=== PATIENT | male | born 1950 | race Caucasian/White ===

== ENCOUNTER → 2016-12-04 | Day surgery (SDC) | payer OTHER ==
[~2016-12-04] VITALS: Ht 182.9 cm; Wt 77.1 kg
[~2016-12-04] MED LIST: ACETAMINOPHEN 325 MG TAB PO PRN; ASPI1TAB PO; AcetaZOLAMIDE 500 MG ER CAP PO ONE; BIMA01SOL OS; BSS with VANC/TOB/EPI for EYE CASES IR ONE; COSO1SOL3 OS; CYCLOPENTOLATE 2% OPHTH SOLN 2ML BTL OD ONE; HEALON DUET (HEALON 10MG/ML 0.55ML & HEALON ENDOCOAT 30MG/ML 0.85ML) As Ordered ONE; LIDOCAINE 1% SDV 5 ML VIAL As Ordered ONE; LIDOCAINE 4% INJ 5 ML AMP OU ONE; LR 1,000 ML IV SCH; MIDAZOLAM INJ 2 MG/2 ML VIAL (J2250) As Ordered ONE; MOXIFLOXACIN IN BSS 0.25MG/0.25ML INTRACAMERAL INJ (OR EYE ONLY)(J2280) As Ordered ONE; MULT1TAB10 PO; OFLOXACIN 0.3 % (OCUFLOX) OPTH SOL 5ML OD ONE; OMEG100011 PO; PHENYLEPHRINE 2.5% OPHTH SOL 2ML OD ONE; PILO1OPD OS; POVIDONE-IODINE 5% OPHTH PREP SOL 30ML As Ordered ONE; SIMV10TA2 PO; SYSTSOL14 OU; TRIAMCINOLONE PRES FR 40 MG/ML 1ML(TRIESENCE)(OR EYE ONLY)(J3300 PER 1MG) As Ordered ONE; TRIMETHOBENZAMIDE 300 MG CAP PO PRN; TROPICAMIDE 1% OPHTH SOLN 2ML OD ONE; VITA100067 PO; fentaNYL 100 MCG/2 ML INJECTION (J3010) As Ordered ONE
[2016-12-04 12:00] VITALS: BP 120/70
== END | disposition home or self-care (01) ==
LOC: M SDC 09:23
PROVIDERS: ATTEND Ophthalmology
DX: H26.9 Unspecified cataract (principal); E78.00 Pure hypercholesterolemia, unspecified; I05.9 Rheumatic mitral valve disease, unspecified; H40.9 Unspecified glaucoma; Z88.8 Allergy status to other drugs, medicaments and biological substances; Z79.899 Other long term (current) drug therapy; Z79.82 Long term (current) use of aspirin; Z87.891 Personal history of nicotine dependence
CPT/HCPCS: 66984; J2250; J2280; J3010; J3300

== ENCOUNTER → 2016-12-25 | Day surgery (SDC) | payer OTHER ==
[~2016-12-25] VITALS: Ht 182.9 cm; Wt 77.1 kg
[~2016-12-25] MED LIST changes: -ACETAMINOPHEN 325 MG TAB PO PRN; -AcetaZOLAMIDE 500 MG ER CAP PO ONE; +CEFUROXIME 1MG/0.1ML INTRACAMERAL INJ As Ordered ONE; -CYCLOPENTOLATE 2% OPHTH SOLN 2ML BTL OD ONE; +CYCLOPENTOLATE 2% OPHTH SOLN 2ML BTL OS ONE; +LIDOCAINE 1% SDV 5 ML VIAL SQ ONE; -LR 1,000 ML IV SCH; +LR 500 ML IV ONE; -OFLOXACIN 0.3 % (OCUFLOX) OPTH SOL 5ML OD ONE; +OFLOXACIN 0.3 % (OCUFLOX) OPTH SOL 5ML OS ONE; -PHENYLEPHRINE 2.5% OPHTH SOL 2ML OD ONE; +PHENYLEPHRINE 2.5% OPHTH SOL 2ML OS ONE; +TOBRADEX OPHTH OINT 3.5 GM As Ordered ONE; -TRIMETHOBENZAMIDE 300 MG CAP PO PRN; -TROPICAMIDE 1% OPHTH SOLN 2ML OD ONE; +TROPICAMIDE 1% OPHTH SOLN 2ML OS ONE; -fentaNYL 100 MCG/2 ML INJECTION (J3010) As Ordered ONE; +mitoMYcin 0.2 MG/VIAL KIT FOR OPHTHALMIC USE (J7315 PER 0.2MG) As Ordered ONE
[2016-12-25 14:55] VITALS: BP 143/83
--- NOTE | 2016-12-28 14:12 | RO ---
DATE OF PROCEDURE: 12/25/2016 PREPROCEDURE DIAGNOSES: Cataract left eye, glaucoma left eye, myosis left eye. POSTPROCEDURE DIAGNOSES: Cataract left eye, glaucoma left eye, myosis left eye. PROCEDURE: Phacoemulsification with intraocular lens implantation of PCB00 power 18.0 Diopter, placement of the Malyugin ring 7 mm and division of the 25 Ahmed valve left eye. SURGEON: Carlota Roche MD. BAND SAW OPERATOR: None. ANESTHESIA: COMPLICATIONS: None. DESCRIPTION OF PROCEDURE: The patient was brought to the operating room and laid in supine position. The left eye was prepped and draped in a sterile fashion for opthalmic surgery and a lid speculum was placed. A sideport incision was made and EndoCoat was injected into the anterior chamber. Temporal clear corneal incision was then made with a 2.5 mm keratome followed by capsulorrhexis and hydrodissection. Phacoemulsification was done in divide and conquer method followed by aspiration of the cortical material. Intraocular lens was then placed under Healon in the capsular bag. Excess viscoelastic was then aspirated. A 27 gauge cannula was used through an inferior paracentesis to probe the Ahmed valve and flush it and was noted to be working okay. However, some scarring of the Ahmed valve was extensive. #10-0 Nylon suture was then placed to close the temporal clear corneal incision and cefuroxime was injected intracamerally 1 mg. Attention was then divided toward revision of the Ahmed valve. Subconjunctival injection of 2% lidocaine with 1:100,000 epinephrine was given superiorly around subconjunctival space around the Ahmed valve. Conjunctival peritomy was done superiorly and supratemporally above the Ahmed valve. Extensive adhesions were noted which were lysed. Following which Mitomycin 0.4 diluted to 0.3 mg was then placed on the scleral bed and around the Ahmed valve for about 2 minutes followed by copious irrigation with balanced salt solution. With gentle massage on the eye, it was noted that the Ahmed valve was working well. Conjunctiva was closed using #0 Vicryl sutures. Ciprodex ointment was applied. Eye was patched. Lid speculum was removed prior to that and patient returned to the recovery room in stable condition.
== END | disposition home or self-care (01) ==
LOC: M SDC 11:20
PROVIDERS: ATTEND Ophthalmology
DX: H25.9 Unspecified age-related cataract (principal); H40.10X2 Unspecified open-angle glaucoma, moderate stage; H57.03 Miosis; E78.00 Pure hypercholesterolemia, unspecified; I34.8 Other nonrheumatic mitral valve disorders; Z79.82 Long term (current) use of aspirin; Z79.899 Other long term (current) drug therapy
CPT/HCPCS: 66183; 66982; C1783; J2250; J2280; J7315

== ENCOUNTER → 2017-07-29 | Outpatient (CLI) | payer OTHER | LOC: M CLY 15:45 | DX: R05 Cough (principal) | CPT/HCPCS: 71046 ==

== ENCOUNTER 2019-05-12 17:41 | Inpatient (IN) | payer MEDICARE, OTHER ==
[~2019-05-12] VITALS: Ht 182.9 cm; Wt 78.6 kg
[~2019-05-12 17:41] MED LIST changes: -ASPI1TAB PO; +ASPI81TA26 PO; -BSS with VANC/TOB/EPI for EYE CASES IR ONE; -CEFUROXIME 1MG/0.1ML INTRACAMERAL INJ As Ordered ONE; -CYCLOPENTOLATE 2% OPHTH SOLN 2ML BTL OS ONE; -HEALON DUET (HEALON 10MG/ML 0.55ML & HEALON ENDOCOAT 30MG/ML 0.85ML) As Ordered ONE; -LIDOCAINE 1% SDV 5 ML VIAL As Ordered ONE; -LIDOCAINE 1% SDV 5 ML VIAL SQ ONE; -LIDOCAINE 4% INJ 5 ML AMP OU ONE; -LR 500 ML IV ONE; -MIDAZOLAM INJ 2 MG/2 ML VIAL (J2250) As Ordered ONE; -MOXIFLOXACIN IN BSS 0.25MG/0.25ML INTRACAMERAL INJ (OR EYE ONLY)(J2280) As Ordered ONE; -OFLOXACIN 0.3 % (OCUFLOX) OPTH SOL 5ML OS ONE; -PHENYLEPHRINE 2.5% OPHTH SOL 2ML OS ONE; -POVIDONE-IODINE 5% OPHTH PREP SOL 30ML As Ordered ONE; -SIMV10TA2 PO; +SIMV10TA21 PO; -TOBRADEX OPHTH OINT 3.5 GM As Ordered ONE; -TRIAMCINOLONE PRES FR 40 MG/ML 1ML(TRIESENCE)(OR EYE ONLY)(J3300 PER 1MG) As Ordered ONE; -TROPICAMIDE 1% OPHTH SOLN 2ML OS ONE; -mitoMYcin 0.2 MG/VIAL KIT FOR OPHTHALMIC USE (J7315 PER 0.2MG) As Ordered ONE
[2019-05-12] MEDS ORDERED: BRIM1OPD OS (17:50)
[2019-05-12] MEDS ORDERED: ADVI100T PO (17:51)
[2019-05-12] MEDS ORDERED: OXYC1TAB23 PO (17:51)
[2019-05-12] MEDS ORDERED: ONDANSETRON 4MG/2ML VIAL (J2405) IV ONE (18:30)
[2019-05-12] MEDS ORDERED: SYST1SOL4 OU (18:47)
[2019-05-12] MEDS ORDERED: KRIL1CAP6 PO (18:47)
[2019-05-12] MEDS ORDERED: IBUP200T45 PO (18:47)
[2019-05-12] MEDS ORDERED: LIDO1PAD TOP (18:47)
[2019-05-12] MEDS ORDERED: SIMV20TA22 PO (18:47)
[2019-05-12] MEDS: MORPHINE 4 MG/ML 1ML VIAL/SYRINGE (J2270) IV PRN ×2 (18:59→19:37)
[2019-05-12 19:00] LABS: BASO % 0.3 % (0.0-1.0); EOS # 0.3 10^3/uL (0.0-0.5); EOS % 2.1 % (0.0-3.0); HEMATOCRIT 45.6 % (42.0-52.0); HEMOGLOBIN 15.1 g/dl (13.5-17.5); LYMPH # 1.8 10^3/uL (1.5-5.0); LYMPH % 15.1 % (24.0-44.0); MEAN CORPUSCULAR HEMOGLOBIN 31.6 pg (27.0-33.0); MEAN CORPUSCULAR HGB CONC 33.1 g/dl (32.0-36.5); MEAN CORPUSCULAR VOLUME 95.4 fl (80.0-96.0); MONO # 1.1 10^3/uL (0.0-0.8); MONO % 9.2 % (0.0-5.0); NEUTROPHILS # 8.8 10^3/uL (1.5-8.5); NEUTROPHILS % 72.8 % (36.0-66.0); PLATELET COUNT, AUTOMATED 245 10^3/uL (150-450); RED BLOOD COUNT 4.78 10^6/uL (4.30-6.10); WHITE BLOOD COUNT 12.1 10^3/uL (4.0-10.0)
--- NOTE | 2019-05-12 19:09 | REPVR ---
PROCEDURE INFORMATION: Exam: CT Chest Without Contrast Exam date and time: 05/12/2019 6:25 PM Age: 69 years old Clinical history: Injury or trauma; Fall; Initial encounter; Blunt trauma (contusions or hematomas); Additional info: Fell/rib FX TECHNIQUE: Imaging protocol: Computed tomography of the chest without contrast. 3D rendering: MIP reconstructed images were created and reviewed. Radiation optimization: All CT scans at this facility use at least one of these dose optimization techniques: automated exposure control; mA and/or kV adjustment per patient size (includes targeted exams where dose is matched to clinical indication); or iterative reconstruction. COMPARISON: CR CHEST 2 VIEW 07/29/2017 4:00 PM FINDINGS: Lungs: Dependent atelectasis bilaterally. Dependent consolidation in the right lower lung is likely a combination of atelectasis and underlying pulmonary contusion. Pleural space: Small right hemopneumothorax. Heart: Aortic annular and coronary artery calcifications are present. Multichamber cardiac enlargement, predominantly the left atrium and ventricle. Aorta: Mild aortic and branch vessel atherosclerosis. Lymph nodes: Unremarkable. No enlarged lymph nodes. Spleen: Multiple splenic parenchymal calcifications, likely from old granulomatous disease. Bones/joints: Right extrapleural hematoma adjacent to the rib fractures. Multiple acute fractures. Right posterior fourth rib fracture. Segmental right fifth, sixth, seventh, eighth, ninth, 10th, 11th rib fractures. Right posterior 12th rib fracture. Right T9 transverse process fracture. Soft tissues: Unremarkable. IMPRESSION: 1. Small right hemopneumothorax. Dependent consolidation in the right lower lung is likely a combination of atelectasis and underlying pulmonary contusion. 2. Multiple fractures, including right segmental rib 5th through 11th fractures which predisposes to flail chest physiology. 3. Multichamber predominantly left heart enlargement. Electronically signed by: Marshall Ryder On 05/12/2019 19:08:45 PM
[2019-05-12 19:13] LABS: INR 1.06; PROTHROMBIN TIME 13.5 SECONDS (11.8-14.0)
[2019-05-12 19:26] LABS: ALBUMIN 3.7 GM/DL (3.2-5.2); ALT/SGPT 23 U/L (12-78); BILIRUBIN,TOTAL 0.9 MG/DL (0.2-1.0); BLOOD UREA NITROGEN 16 MG/DL (7-18); CALCIUM LEVEL 9.5 MG/DL (8.8-10.2); CARBON DIOXIDE LEVEL 26 MEQ/L (21-32); CHLORIDE LEVEL 104 MEQ/L (98-107); CREATININE FOR GFR 1.24 MG/DL (0.70-1.30); GLOMERULAR FILTRATION RATE > 60.0 (>49); GLUCOSE, FASTING 111 MG/DL (70-100); POTASSIUM SERUM 4.3 MEQ/L (3.5-5.1); SODIUM LEVEL 137 MEQ/L (136-145); TOTAL PROTEIN 6.9 GM/DL (6.4-8.2)
[2019-05-12] MEDS ORDERED: ACETAMINOPHEN TAB 650MG DOSE (2X325MG) PO PRN (20:00)
[2019-05-12] MEDS ORDERED: traMADol ER 100MG TABLET (ULTRAM ER) PO SCH (21:00)
[2019-05-12] MEDS ORDERED: PERCOCET 5MG/325MG TAB PO PRN (21:30)
[2019-05-12] MEDS ORDERED: diphenhydrAMINE 25 MG CAP PO PRN (21:30)
--- NOTE | 2019-05-12 22:05 | HPEPDOC ---
[facility] Medical History & Physical Date of Admission May 12, 2019 Date of Service: May 12, 2019 Primary Care Physician: Thom Pacheco MD Attending Physician: ALLISON LO MD History and Physical TIME OF SERVICE: 9:10 PM CHIEF COMPLAINT: back pain HISTORY OF PRESENT ILLNESS: This is a 69-year-old male who slipped and fell on the ice onto his back earlier on today. As a result of the fall. He developed, 7 out of 10 in severity, right sided back pain. He denies hitting his head or any other part of his body. He denied having any chest pain, shortness of breath, or leg swelling prior to the incident. REVIEW OF SYSTEMS: 12 point review of systems negative except as listed in HPI PAST MEDICAL/ SURGICAL HISTORY: Mitral valve prolapse Dyslipidemia Glaucoma. Status post cataract surgery. Status post hernia repair SOCIAL HISTORY: He quit smoking FAMILY HISTORY: The patient denied knowledge of any medical problems in his family ALLERGIES: Please see below. HOME MEDICATIONS: Please see below. PHYSICAL EXAMINATION: VITAL SIGNS: Please see below. GENERAL APPEARANCE: Well-nourished, well-developed, appears to be in pain HEENT: Normocephalic, atraumatic. Mucous membranes moist and pink. Nasal cannula is in place CARDIOVASCULAR:. Regular rate and rhythm. No murmurs, rubs or gallops LUNGS: Clear to auscultation bilaterally on room air ABDOMEN: Bowel sounds are hypoactive. Abdomen is soft and nontender on palpation MUSCULOSKELETAL:. Range of motion is intact in all 4 extremities is no lower extremity edema INTEGUMENT: He does not appear jaundiced or pale NEUROLOGICAL:. Cranial nerves II-12 are grossly intact. Speech is not dysarthric PSYCHIATRIC: Alert and oriented to person, place and time, able to understand and follow commands LABORATORY DATA: See below. IMAGING: CT of the chest " IMPRESSION: 1. Small right hemopneumothorax. Dependent consolidation in the right lower lung is likely a combination of atelectasis and underlying pulmonary contusion. 2. Multiple fractures, including right segmental rib 5th through 11th fractures which predisposes to flail chest physiology. 3. Multichamber predominantly left heart enlargement. " ASSESSMENT: Mr. Madrigal is a 69-year-old with a past medical history of dyslipidemia and mitral valve prolapse will be admitted from management of pain related to multiple rib fractures pulmonary contusion and small right-sided hemo-pneumothorax. PLAN: 1. Right-sided 5th- 11th rib fractures secondary to mechanical fall Plan: Admit to medical floor/pain control with Percocet and ibuprofen/incentive spirometer 2. Right-sided hemo-pneumothorax His hemoglobin is within normal limits Plan: O2 via nasal cannula,/follow up chest x-ray in the morning/ if he deteriorates, the daytime team may consider CT surgery consult / hold aspirin and ibuprofen 3. Leukocytosis Likely reactive secondary to fall. Plan: Monitor vitals, follow-up CBC in the morning 4. Hyperglycemia. Plan: Follow up A1c 5. Dyslipidemia Plan: Continue home meds 6 . Glaucoma Plan: Continue home meds DVT prophylaxis with SCDs Disposition likely home after more than 2 midnights stay Vital Signs Vital Signs Date Time Temp Pulse Resp B/P (MAP) Pulse Ox O2 Delivery O2 Flow Rate FiO2 05/12/19 20:45 75 18 141/84 (103) 94 Nasal Cannula 1.0 05/12/19 17:44 97.4 Laboratory Data Labs 24H Laboratory Tests 2 05/12/19 18:53: Immature Granulocyte % (Auto) 0.5, Neutrophils (%) (Auto) 72.8H, Lymphocytes (%) (Auto) 15.1L, Monocytes (%) (Auto) 9.2H, Eosinophils (%) (Auto) 2.1, Basophils (%) (Auto) 0.3, Neutrophils # (Auto) 8.8H, Lymphocytes # (Auto) 1.8, Monocytes # (Auto) 1.1H, Eosinophils # (Auto) 0.3, Basophils # (Auto) 0.0, Nucleated Red Blood Cells % (auto) 0.0, Prothrombin Time 13.5, Prothromb Time International Ratio 1.06, Anion Gap 7L, Glomerular Filtration Rate > 60.0, Calcium Level 9.5, Total Bilirubin 0.9, Aspartate Amino Transf (AST/SGOT) 18, Alanine Aminotransferase (ALT/SGPT) 23, Alkaline Phosphatase 69, Total Protein 6.9, Albumin 3.7, Albumin/Globulin Ratio 1.16 CBC/BMP Laboratory Tests 05/12/19 18:53 Home Medications Scheduled Aspirin (Aspirin EC) 81 Mg Tab, 81 MG PO QPM Bimatoprost (Lumigan) 50 Drop/2.5 Ml Melonie, 1 DROP OS QHS Brimonidine Tartrate (Alphagan P) 0.1% 5ML Drops, 1 DROP OS BID Dorzolamide HCl/Timolol Maleat (Cosopt Eye Drops) 1 Ml Soln, 1 DROP OS BID Krill/Om-3/Dha/Epa/Phospho/Ast (Krill Oil 500 mg Softgel) 1 Each Capsule, 500 MG PO QPM Lidocaine (Lidocaine) 5% Adh..patch, 1 PATCH TOP QHS APPLY TO LOWER BACK Propylene Glycol/Peg 400/Pf (Systane 0.3-0.4% Eye Drop) 1 Each Droperette, 1 DROP OU BID Simvastatin (Simvastatin) 20 Mg Tablet, 20 MG PO QPM Scheduled PRN Ibuprofen (Ibu-200) 200 Mg Tablet, 800 MG PO Q6H PRN for PAIN Oxycodone HCl/Acetaminophen (Oxycodone-Acetaminophen 5-325) 1 Each Tablet, 1 TAB PO Q6H PRN for PAIN Allergies Coded Allergies: No Known Drug Allergies (Verified Allergy, Unknown, 05/12/19) A-FIB/CHADSVASC A-FIB History Current/History of A-Fib/PAF?: No Current PO Anticoag Therapy: No ALLISON LO MD May 12, 2019 22:05
[2019-05-12 22:27] VITALS: BP 133/81
[2019-05-12 22:45] LABS: HEMOGLOBIN A1c 5.6 %
[2019-05-12] MEDS: BRIMONIDINE 0.1% OPHTH SOLN 5 ML OS SCH (23:08)
[2019-05-12] MEDS: COSOPT OCUMETER PLUS 10ML (DORZOLAMIDE/TIMOLOL) OS SCH (23:08)
[2019-05-12] MEDS: IBUPROFEN 600 MG TAB PO SCH (23:10)
[2019-05-12] MEDS: SIMVASTATIN 20 MG TAB PO SCH (23:10)
[2019-05-13] MEDS ORDERED: PERCOCET 5MG/325MG TAB PO PRN
[2019-05-13 06:51] LABS: HEMATOCRIT 42.9 % (42.0-52.0); HEMOGLOBIN 14.2 g/dl (13.5-17.5); MEAN CORPUSCULAR HEMOGLOBIN 31.9 pg (27.0-33.0); MEAN CORPUSCULAR HGB CONC 33.1 g/dl (32.0-36.5); MEAN CORPUSCULAR VOLUME 96.4 fl (80.0-96.0); PLATELET COUNT, AUTOMATED 227 10^3/uL (150-450); RED BLOOD COUNT 4.45 10^6/uL (4.30-6.10); WHITE BLOOD COUNT 10.2 10^3/uL (4.0-10.0)
[2019-05-13 07:21] LABS: BLOOD UREA NITROGEN 17 MG/DL (7-18); CALCIUM LEVEL 8.9 MG/DL (8.8-10.2); CARBON DIOXIDE LEVEL 27 MEQ/L (21-32); CHLORIDE LEVEL 107 MEQ/L (98-107); CREATININE FOR GFR 1.14 MG/DL (0.70-1.30); GLOMERULAR FILTRATION RATE > 60.0 (>49); GLUCOSE, FASTING 92 MG/DL (70-100); MAGNESIUM LEVEL 2.5 MG/DL (1.8-2.4); SODIUM LEVEL 140 MEQ/L (136-145)
[2019-05-13] MEDS: **NOTE PATIENT COMMENT** MISC XX SCH (09:00)
[2019-05-13] MEDS: SYSTANE OU SCH ×2 (09:00→20:17)
[2019-05-13] MEDS ORDERED: ENOXAPARIN 40 MG/0.4 ML SYRINGE (J1650) SC SCH (09:00)
--- NOTE | 2019-05-13 09:33 | REP ---
Two-view chest: 05/13/2019. Indication: Pneumothorax. Chest trauma. Comparison: CT chest complete yesterday. Findings: Small apical right pneumothorax and multiple right rib fractures are present. There is a small right-sided pleural effusion. There is no evidence of lung contusion. The left lung is clear. Slightly elevated left hemidiaphragm is present. Impression: Multiple right-sided rib fractures with small right apical pneumothorax and minimal right-sided pleural fluid. Electronically Signed by Giovani Cam DO 05/13/2019 09:24 A
[2019-05-13] MEDS: COSOPT OCUMETER PLUS 10ML (DORZOLAMIDE/TIMOLOL) OS SCH ×2 (09:57→20:16)
[2019-05-13] MEDS: BRIMONIDINE 0.1% OPHTH SOLN 5 ML OS SCH ×2 (09:57→20:16)
[2019-05-13] MEDS: IBUPROFEN 600 MG TAB PO SCH (09:57)
[2019-05-13] MEDS ORDERED: ALBUTEROL SULFATE 2.5 MG/0.5 ML INH NEB SOLN INH PRN (12:45)
[2019-05-13 13:00] VITALS: BP 141/75
--- NOTE | 2019-05-13 13:05 | IPN ---
DATE OF SERVICE: 02/11/2019 oJvan is seen on [facility]. He was admitted yesterday with multiple rib fractures, suspected flail chest. He was admitted to the floor. His history and physical (H and P) indicates he fell yesterday, but his fall was actually 4 days prior to admission. He was seen in [facility]. Multiple rib fractures confirmed radiographically. The patient was sent home with oral analgesic. He has had increasing respiratory difficulty since then. It hurts to cough. He has become more short of breath. PHYSICAL EXAMINATION: Morning vital signs are not recorded yet. General appearance: He looks very uncomfortable. He is taking shallow respirations. He lets his answer questions because it hurts for him to talk. He tried to keep himself from coughing due to the pain. Lungs: Decreased breath sounds on the right side. No crepitance on the right side. Tender to palpate diffusely in the right side of his chest, particularly posteriorly. Heart: Regular rate and rhythm. Abdomen: Soft, nontender. No peripheral edema. He has normal strength and sensation in the lower extremities. LABORATORIES: Electrolytes unremarkable. White count 10.2, hemoglobin 14.2, platelets 227. IMPRESSION: 1. Fall 4 days prior to admission with right posterior 4th, 5th, 6th, 7th, 8th, 9th, 10th, 11th, and 12th rib fractures. Right T9 transverse process fracture. He had a small right hemopneumothorax. Plan: This patient belongs in a unit bed. He is being transferred immediately down to progressive care unit (PCU). I have discussed the case with Dr. Ancelmo Hernandez from thoracic surgery. He will see the patient in consultation. He is contacting anesthesia to arrange a prompt epidural. I am concerned this patient is going to develop pneumonia, worsening pneumothorax, or other complications from hypoventilation. This was all discussed with the patient and his . He agrees with the plan. 2. Transverse fracture T9. Neurologic function is stable. ADDENDUM: The case has been discussed with Dr. Ancelmo Hernandez. He will see the patient in consultation promptly. The case was discussed with Dr. Rodriguez of anesthesia, who will see the patient in consultation and evaluate for requested epidural anesthesia. Addendum 05/13/2019
[2019-05-13] MEDS ORDERED: FENTANYL 2MCG/ML BUPIVACAINE 0.0625% NACL 250ML IV BAG As Ordered ONE (14:14)
[2019-05-13] MEDS ORDERED: BISACODYL 10 MG SUPP PR PRN (14:15)
[2019-05-13] MEDS ORDERED: ONDANSETRON 4MG/2ML VIAL (J2405) IV PRN ×2 (14:15→16:00)
[2019-05-13] MEDS ORDERED: fentaNYL 100 MCG/2 ML INJECTION (J3010) As Ordered ONE (14:26)
[2019-05-13] MEDS ORDERED: MIDAZOLAM INJ 2 MG/2 ML VIAL (J2250) As Ordered ONE (14:26)
[2019-05-13] MEDS: fentaNYL 100 MCG/2 ML INJECTION (J3010) IV SCH ×2 (14:56→15:07)
[2019-05-13] MEDS: MIDAZOLAM INJ 2 MG/2 ML VIAL (J2250) IV SCH ×2 (14:56→15:07)
--- NOTE | 2019-05-13 15:25 | CR ---
DATE OF CONSULTATION: 05/13/2019 Patient is seen at the request of Dr. Agarwal, after I was notified of the patient earlier this morning, regarding multiple rib fractures. HISTORY OF PRESENT ILLNESS: Patient is a 69-year-old white male, who was previously very active, but who slipped on ice on a grassy patch this past Friday. He fell and landed on his back and right side. He felt immediate pain and shortness of breath. He was seen in the emergency room on 05/12/2019 and was sent home on oral analgesics. Reviewing the medical record here, I do not see that he was actually seen here in our emergency room, but sometime after Friday, he was seen in an emergency room and/or urgent care setting. Since then, his pain has gotten more and more out of control. He denies fever, chills, or sweats as of yet. He has difficulty breathing secondary to the pain. Prior to this, he had no shortness of breath nor did he have a cough or sputum production. The sputum that he is bringing up is white now, but he tries not to cough. There has been no dysphagia. He describes his pain as excruciating, about 20/10 when he coughs. PAST MEDICAL HISTORY: Mitral valve prolapse. Glaucoma. Dyslipidemia. PAST SURGERIES: Cataract surgery. Hernia repair in the remote past. ALLERGIES: None. TRAVEL HISTORY: He has been to the [facility], but not to the [facility]. No foreign travel. EXPOSURES: No dogs, birds, or cats at home. 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 There is no overt asbestos exposure. No exposure to tuberculosis. Is a former smoker, and he stopped in , but smoked about 1 pack per day of Merit cigarettes for 15 years. He has a couple of beers a week. No illicit drugs. FAMILY HISTORY: Not pertinent to the acute situation. MEDICATIONS AT HOME: - Lumigan one drop left eye nightly - Alphagan one drop left eye twice a day - Cosopt one drop left eye twice a day - simvastatin 20 mg nightly - aspirin 81 mg every evening REVIEW OF SYSTEMS: CONSTITUTIONAL: See history of present illness (HPI). EYES: Without diplopia, without amaurosis fugax, without prior jaundice. NOSE: Without epistaxis. MOUTH: Has his own teeth. RESPIRATORY: See HPI. CARDIAC: Without prior myocardial infarctions, intermittent claudication, or leg edema. GASTROINTESTINAL (GI): Without nausea, vomiting, diarrhea, constipation, melena, hematochezia, hematemesis, or abdominal pain. GENITOURINARY (): Without dysuria, hematuria, or prior history of renal stones. NEUROLOGIC: Without paresthesias, paralyses, or prior strokes. ENDOCRINE: Without diabetes. Without thyroid disease. PSYCHIATRIC: Without pathological anxieties, depressions, or psychoses. INVESTIGATIONS: His white count is 10.2 with a hemoglobin and hematocrit of 14.2 and 42.9, with a platelet count of 227. Electrolytes are normal with a BUN/creatinine of 17 and 1.14, glucose of 92, and a calcium of 8.9. Chest x-ray done this morning shows multiple fractured ribs with some blunting of the right costophrenic angle. I cannot see complete outline of the diaphragm. I see no other overt infiltrates, other than some posterior-inferior atelectasis on the lateral film. His chest CT done yesterday in the emergency room shows multiple rib fractures, 5, 6, 7, 8, 9, 10, 11, and perhaps 4. I do not see a flail segment. He has atelectasis in the right lower lobe posteriorly. There may be a small fluid collection consistent with extravasated blood from his rib fractures. Great vessels look to be intact. There is no mediastinal hematoma, and there is no mediastinal lymphadenopathy. He does have one paratracheal node, which is semi-calcified. There is also a subcarinal node that has some calcifications. There is some minor coronary atherosclerosis in the proximal LAD, but only a very small amount. Spleen is intact as is his liver. IMPRESSION: 1. Multiple rib fractures, 5, 6, 7, 8, 9, 10, 11, and possibly 4 for eight on the right side. 2. Atelectasis, right lower lobe versus lung contusion. 3. Pericostal hematoma in and around the rib fractures. 4. Known dyslipidemia. 5. Glaucoma. PLAN AND DISCUSSION: The mainstay of his care needs to be pain control. I have contacted anesthesia, and they are placing an epidural as I dictate. There was some confusion about whether he had gotten Lovenox this morning, but I have checked with the nursing, and he did not receive the Lovenox. We will start him on lung expansion therapy and follow his chest x-rays. He is at risk for developing pneumonia from the atelectasis. This is now 4 days status post his fall.
[2019-05-13] MEDS: ALBUTEROL SULFATE 2.5 MG/0.5 ML INH NEB SOLN INH SCH ×2 (15:26→20:05)
[2019-05-13 16:00] VITALS: BP 97/56
[2019-05-13] MEDS ORDERED: EPIDURAL/PCA KEYS XX PRN (16:00)
[2019-05-13] MEDS ORDERED: NALOXONE INJ 0.4 MG/1 ML VIAL (J2310) IV PRN (16:00)
[2019-05-13] MEDS ORDERED: diphenhydrAMINE INJ 50MG/ML VIAL (J1200) IV PRN (16:00)
[2019-05-13] MEDS ORDERED: METOCLOPRAMIDE INJ 10MG/2ML VIAL (J2765) IV PRN (16:00)
[2019-05-13] MEDS ORDERED: WALLBOXKEY XX PRN (16:00)
[2019-05-13] MEDS: FENTANYL/BUPIVACAINE/NACL BAG 250 ML EPIDURAL SCH (16:20)
[2019-05-13] MEDS ORDERED: LR 1,000 ML IV SCH (16:45)
[2019-05-13] MEDS: KETOROLAC 30 MG/ML VIAL (J1885) IV SCH ×2 (17:16→20:15)
[2019-05-13] MEDS: PANTOPRAZOLE 40MG TAB (PROTONIX) PO SCH (17:29)
[2019-05-13] MEDS: SIMVASTATIN 20 MG TAB PO SCH (17:29)
[2019-05-13] MEDS: MOM 30ML SUSPENSION UDC PO SCH (17:29)
--- NOTE | 2019-05-13 17:58 | ECGEPIP ---
[facility] - ED Test Date: 2019-05-12 Pat Name: HILARIA ADRIAN Department: Room: C8909-45 Gender: Male Bliss Press Operator: : [id number] Requested By: Priscilla Pierre Order Number: [id number] Reading MD: Mariusz Campo Measurements Intervals [place] Rate: 71 P: 25 LA: 164 QRS: -18 QRSD: 106 T: 30 QT: 371 QTc: 405 Interpretive Statements SINUS RHYTHM NONSPECIFIC T-WAVE ABNORMALITY NO PRIORS FOR COMPARISON Electronically Signed on 05-13-2019 17:58:05 EST by Mariusz Campo
[2019-05-13 20:00] VITALS: BP 115/63
[2019-05-13] MEDS: DOCUSATE SODIUM 100 MG CAP PO SCH (20:14)
[2019-05-13] MEDS: LIDOCAINE 5% (LIDODERM) PATCH TOP SCH (20:14)
[2019-05-13] MEDS: LUMIGAN 0.01% OS SCH (20:16)
[2019-05-14] VITALS (11 sets, daily range): BP systolic 115–129; BP diastolic 58–69; O2SAT 93–98
[2019-05-14] MEDS: KETOROLAC 30 MG/ML VIAL (J1885) IV SCH ×4 (05:03→20:03)
[2019-05-14 06:12] LABS: HEMATOCRIT 39.8 % (42.0-52.0); HEMOGLOBIN 12.7 g/dl (13.5-17.5); MEAN CORPUSCULAR HEMOGLOBIN 31.3 pg (27.0-33.0); MEAN CORPUSCULAR HGB CONC 31.9 g/dl (32.0-36.5); PLATELET COUNT, AUTOMATED 222 10^3/uL (150-450); RED BLOOD COUNT 4.06 10^6/uL (4.30-6.10); WHITE BLOOD COUNT 11.2 10^3/uL (4.0-10.0)
[2019-05-14 06:28] LABS: BLOOD UREA NITROGEN 22 MG/DL (7-18); CALCIUM LEVEL 8.7 MG/DL (8.8-10.2); CARBON DIOXIDE LEVEL 28 MEQ/L (21-32); CHLORIDE LEVEL 109 MEQ/L (98-107); CREATININE FOR GFR 1.18 MG/DL (0.70-1.30); GLOMERULAR FILTRATION RATE > 60.0 (>49); GLUCOSE, FASTING 116 MG/DL (70-100); SODIUM LEVEL 141 MEQ/L (136-145)
[2019-05-14] MEDS: ALBUTEROL SULFATE 2.5 MG/0.5 ML INH NEB SOLN INH SCH ×4 (08:34→20:40)
--- NOTE | 2019-05-14 08:42 | REP ---
Clinical: Trauma. Technique: PA and lateral. Comparison: 05/13/2019. Findings: Multiple mildly displaced right posterolateral rib fractures are again noted. Mediastinum and cardiac silhouette are normal. Small residual right pneumothorax is appreciated. Subtle scattered right parenchymal opacities suggest elements of consolidation/contusion as well as basilar atelectasis and small stable right pleural effusion. Small left pleural effusion is also suggested along with trace left basilar atelectasis. Impression: Small right residual pneumothorax suggested. Pleuroparenchymal changes and right rib fractures as above. Electronically Signed by Alpesh Roche MD 05/14/2019 08:34 A
[2019-05-14] MEDS: **NOTE PATIENT COMMENT** MISC XX SCH (09:00)
[2019-05-14] MEDS: PANTOPRAZOLE 40MG TAB (PROTONIX) PO SCH (10:05)
[2019-05-14] MEDS: DOCUSATE SODIUM 100 MG CAP PO SCH ×2 (10:05→20:04)
[2019-05-14] MEDS: MOM 30ML SUSPENSION UDC PO SCH (10:06)
[2019-05-14] MEDS: COSOPT OCUMETER PLUS 10ML (DORZOLAMIDE/TIMOLOL) OS SCH ×2 (10:07→20:03)
[2019-05-14] MEDS: BRIMONIDINE 0.1% OPHTH SOLN 5 ML OS SCH ×2 (10:07→20:03)
[2019-05-14] MEDS: SYSTANE OU SCH ×2 (10:07→20:04)
--- NOTE | 2019-05-14 10:18 | IPNPDOC ---
Subjective Date Seen The patient was seen on 05/14/19. Subjective Chief Complaint/HPI Pain well controlled with Epidural - Able to take fairly deep breaths with IS Denies SOB Constitutional: Denies: Chills, Fever Pulmonary: Reports: Dyspnea; Denies: Cough Cardiovascular: Reports: Chest Pain; Denies: Palpitations, Orthopnea Gastrointestinal: Denies: Nausea, Vomiting, Abdominal Pain, Diarrhea, Constipation Genitourinary: Reports: Retention (Noyola placed due to retention after epidural) Objective Physical Examination General Exam: Positive: Alert, No Acute Distress Chest Exam: Positive: Normal air movement, Diminished (decreased breath sounds, but no rhonchior rales) Heart Exam: Positive: Rate Normal, Regular Rhythm, Murmurs (loud SALTY apex - MVP per patient?) Abdomen Exam: Positive: Normal bowel sounds, Soft; Negative: Tenderness Extremity Exam: Negative: Edema Assessment /Plan Problems (1) Multiple rib fractures Status: Acute Problem Text: 05/14 - Continue Epidural for pain control - will likely need this for several days until rib pain improves and can transition o oral pain meds Cont IS and encourage OOB Chest CT on admission:1. Small right hemopneumothorax. Dependent consolidation in the right lower lung is likely a combination of atelectasis and underlying pulmonary contusion. 2. Multiple fractures, including right segmental rib 5th through 11th fractures which predisposes to flail chest physiology. 3. Multichamber predominantly left heart enlargement. (2) Pneumothorax Status: Acute Response to Treatment: Improving Problem Text: 05/14 - CXR today: Small right residual pneumothorax suggested. Pleuroparenchymal changes and right rib fractures as above. Dr. Hernandez following (3) Fracture of transverse process of spine without spinal cord lesion (4) Urinary retention Status: Acute Problem Text: Noyola placed due to urinary retention after epidural Plan/VTE VTE Prophylaxis Ordered?: Yes (SCDs/TEDs - no anticoag due to hemopneumothorax) VS, I&O, 24H, Fishbone Vital Signs/I&O Vital Signs Date Time Temp Pulse Resp B/P (MAP) Pulse Ox O2 Delivery O2 Flow Rate FiO2 05/14/19 04:00 97.7 71 20 129/69 (89) 96 Nasal Cannula 1.0 I&O- Last 24 Hours up to 6 AM 05/14/19 06:00 Intake Total 1160 ml Output Total 1175 ml Balance -15 ml Laboratory Data 24H LABS Laboratory Tests 2 05/14/19 05:58: Nucleated Red Blood Cells % (auto) 0.0, Anion Gap 4L, Glomerular Filtration Rate > 60.0, Calcium Level 8.7L CBC/BMP Laboratory Tests 05/14/19 05:58 VITA IRWIN PA-C May 14, 2019 10:18
--- NOTE | 2019-05-14 14:20 | IPN ---
DATE: 05/14/2019 Mr. Madrigal's pain control is night and day. He is up in a chair. He is able to cough and take deep breaths. He is feeling a whole lot better and actually smiling. Noyola catheter had to be placed secondary to placing the epidural when he could not void. His vital signs show a maximum temperature (t-max) of 98.8 with a heart rate that ranges between 68 and 75 in a sinus rhythm, respiratory rate of 18 to 20 without the use of accessory muscles who is 93 to 96% saturated on 1 liter nasal cannula and whose blood pressure is ranging between 129/69 to 91/50. His intake and output over the past 24 hours has been recorded as 1040 in and 825 out for a positivity of 215 mL. Weight today is 75.1 kg compared to 77.2 kg the day before. PHYSICAL EXAMINATION: LUNGS: His lungs show normal vesicular sounds without wheezes, rhonchi or rales. Percussion note is full to the diaphragm. CARDIAC EXAM: Shows the systolic murmur at the left lower sternal border and apex consistent with mitral regurgitation and prolapse. I cannot feel his point of maximum impulse (PMI). S1, S2 are normal. ABDOMEN: Soft, nontender. Bowel sounds positive. There is no hepatomegaly. No costovertebral angle tenderness. He has had a bowel movement. EXTREMITIES: Show no pretibial edema. No calf tenderness. No differential swelling of the upper extremities. SKIN: Warm, dry and perfused without cyanosis or mottling, including that of the nail beds and knees. NECK: Supple. There is no jugular venous distention. No subcutaneous emphysema. Trachea is midline. MOUTH: Shows his mucous membranes to be pink and moist. Lips and commissures without lesions. There is no thrush. EYES: Show his pupils to be equal and reactive. Extraocular motion intact. Sclerae anicteric. NEUROLOGIC: Shows II through XII intact with gross motor and gross sensation intact. Gait is not tested. PSYCHIATRIC: Shows him to be awake and alert, oriented times three with appropriate mood and affect and conversational. His white count today is 11.2 with hemoglobin and hematocrit of 12.7 and 39.8, essentially unchanged from yesterday with a platelet count of 222. There is no differential. Chemistries today show essentially normal electrolytes with BUN and creatinine of 22 and 1.18. Calcium is 8.7, glucose 116. Chest x-ray today shows some moderate blunting of the right costophrenic angle. This can also be seen in the lateral film on the right side. He has displaced rib fractures. Mediastinum is in the midline with a normal CT ratio. There is no subcutaneous emphysema. IMPRESSION: 1. Multiple rib fractures 5, 6, 7, 8, 9, 10, 11 and perhaps 4 for seven to eight numbers. There is no flail chest. 2. Atelectasis of the right lower lobe. 3. Inadequate pain control, now well controlled with the epidural. 4. Pericostal hematoma in and around the rib fractures. 5. Dyslipidemia. 6. Glaucoma. PLAN/DISCUSSION: The epidural should stay in place for the next 5 days. This is day number 1 and day number 5 would be Friday, at which time it should be weaned 1 mL per hour until off and be given oral pain medications during the wean. He has multiple rib fractures and these are going to hurt and there should be no compunction to give him narcotic analgesia if necessary. I will see him back in the office about 10 days after he is discharged from the hospital. I will be going away for 10 days starting on Friday morning, but I will see him on those days. The only major complication I can see to his rib fractures would be development of an osmotic hematoma, for which he would need to be drained if significant with a pigtail catheter or even with a pleurocentesis by ultrasound. During the wean, oral pain medications can be given and then the catheter can be discontinued upon starting to wean the epidural.
[2019-05-14] MEDS: FENTANYL/BUPIVACAINE/NACL BAG 250 ML EPIDURAL SCH (17:08)
[2019-05-14] MEDS: SIMVASTATIN 20 MG TAB PO SCH (17:21)
[2019-05-14] MEDS: LUMIGAN 0.01% OS SCH (20:04)
[2019-05-14] MEDS: LIDOCAINE 5% (LIDODERM) PATCH TOP SCH (20:04)
[2019-05-15] VITALS (23 sets, daily range): BP systolic 108–129; BP diastolic 55–80; O2SAT 92–100
[2019-05-15] MEDS: KETOROLAC 30 MG/ML VIAL (J1885) IV SCH ×4 (03:54→20:16)
[2019-05-15 05:26] LABS: HEMOGLOBIN 12.6 g/dl (13.5-17.5); MEAN CORPUSCULAR HEMOGLOBIN 31.1 pg (27.0-33.0); MEAN CORPUSCULAR HGB CONC 31.5 g/dl (32.0-36.5); MEAN CORPUSCULAR VOLUME 98.8 fl (80.0-96.0); PLATELET COUNT, AUTOMATED 228 10^3/uL (150-450); RED BLOOD COUNT 4.05 10^6/uL (4.30-6.10); WHITE BLOOD COUNT 9.9 10^3/uL (4.0-10.0)
[2019-05-15 05:47] LABS: BLOOD UREA NITROGEN 26 MG/DL (7-18); CALCIUM LEVEL 8.8 MG/DL (8.8-10.2); CARBON DIOXIDE LEVEL 27 MEQ/L (21-32); CHLORIDE LEVEL 108 MEQ/L (98-107); CREATININE FOR GFR 0.98 MG/DL (0.70-1.30); GLOMERULAR FILTRATION RATE > 60.0 (>49); GLUCOSE, FASTING 99 MG/DL (70-100); POTASSIUM SERUM 3.9 MEQ/L (3.5-5.1); SODIUM LEVEL 139 MEQ/L (136-145)
[2019-05-15] MEDS: ALBUTEROL SULFATE 2.5 MG/0.5 ML INH NEB SOLN INH SCH ×4 (08:28→19:34)
[2019-05-15] MEDS: MOM 30ML SUSPENSION UDC PO SCH (08:45)
[2019-05-15] MEDS: BRIMONIDINE 0.1% OPHTH SOLN 5 ML OS SCH ×2 (08:46→20:14)
[2019-05-15] MEDS: DOCUSATE SODIUM 100 MG CAP PO SCH ×2 (08:46→20:15)
[2019-05-15] MEDS: COSOPT OCUMETER PLUS 10ML (DORZOLAMIDE/TIMOLOL) OS SCH ×2 (08:46→20:15)
[2019-05-15] MEDS: **NOTE PATIENT COMMENT** MISC XX SCH (08:46)
[2019-05-15] MEDS: PANTOPRAZOLE 40MG TAB (PROTONIX) PO SCH (08:46)
[2019-05-15] MEDS: SYSTANE OU SCH ×2 (08:46→20:17)
--- NOTE | 2019-05-15 08:46 | REP ---
CHEST PA AND LATERAL: 05/15/2019. COMPARISON: 05/14/2019, 05/13/2019, CT 05/12/2019. CLINICAL HISTORY: Multiple rib fractures followup pneumothorax, right side. FINDINGS: Epidural catheter again seen over the right chest and upper spine. There is a small apical pneumothorax on the right side with an air gap of a few millimeters. There are multiple displaced and depressed rib fractures with a small right effusion and some basilar atelectatic changes. Left lung was clear. A trace left pleural effusion may also be present. No other changes. IMPRESSION: 1. Small right apex residual pneumothorax with multiple depressed rib fractures and some right pleural effusion. All of this unchanged from yesterday on the right. 2. I cannot confirm a definite left effusion. No other changes or significant findings. Electronically Signed by Shade Alcantar MD 05/15/2019 07:42 P
--- NOTE | 2019-05-15 10:32 | IPN ---
DATE: 05/15/2019 Mr. Madrigal is sitting up comfortably today. He has increased pain with moving, but he is able to cough and take deep breaths and in fact can get the incentive spirometer at 2500. With taking a deep breath with the incentive spirometer, his pain does not increase. His vital signs show a maximum temperature (T max) of 98.5 with a heart rate that ranges between 82 and 66 and is sinus rhythm, respiratory rate of 18 to 19 without the use of accessory muscles who is 95% saturated on room air, and whose blood pressure is ranging between 126/77 to 108/66. His intake and output over the past 24 hours has been recorded as 1520 in and 750 out for a positivity of 770 mL. He weighs 76.5 kg today compared to 75.1 kg yesterday. On physical examination, his lungs show coarse inspiratory rhonchi and rales on the left lower base, all of which clear with coughing. Underneath, he has normal vesicular sounds and his percussion note is full to the diaphragm. I am surprised that I hear the rhonchi in the left lower base rather than the right lower base as the right side is where all of his fractures are. Cardiac exam shows the same 3/6 mitral murmur at the lower left sternal border and apex. S1, S2 are normal. I cannot hear any other rubs or gallops. Abdomen is soft and nontender, slightly distended and tympanitic. He has had a bowel movement, however. I detect no hepatomegaly in the sitting position. Extremities show no pretibial edema. No calf tenderness. No differential swelling of the upper extremities. Skin is warm, dry and perfused without cyanosis or mottling, including that of the nail beds and the knees. Neck is supple. There is no jugular venous distention, no subcutaneous emphysema. Trachea is midline. Mouth shows his mucous membranes to be pink and moist. Lips and commissures without lesions. There is no thrush. Eyes show his pupils to be equal and reactive. Extraocular motions intact. Sclerae anicteric. Neurologic shows II-XII intact along with gross motor and gross sensation intact. Gait is not tested. Psychiatric shows him to be awake and alert, oriented times three with appropriate mood and affect and conversational. His white count today is 9.9 with a hemoglobin and hematocrit of 12.6 and 40, essentially unchanged from yesterday. Platelet count is 228. Chemistries show essentially normal electrolytes with a BUN and creatinine of 26 and 0.98 with a glucose of 99 and a calcium of 8.8. He remains on Toradol. His chest x-ray shows his lung fully expanded to the chest wall with some minor blunting of the right costophrenic angle. There is a small apical air space measuring maybe 3 mm. There is no subcutaneous emphysema, and there is no mediastinal shift. IMPRESSION: 1. Multiple rib fractures 5, 6, 7, 8, 9, 10, 11 and perhaps 4 with a total of seven to eight without any flail segments. 2. Atelectasis right lower lobe. 3. Adequate pain control, well controlled with the epidural and Toradol. 4. Pericostal hematoma in and around the rib fractures. 5. Dyslipidemia. 6. Glaucoma. 7. Miniscule pneumothorax right side. PLAN AND DISCUSSION: The air space was present on the CT scan and does not warrant a chest tube. As noted in yesterday's discussion, his epidural should be weaned on Friday at 1 mL per hour during which time oral pain control, which should include the equivalent of Percocet, i.e. oxycodone and Tylenol, would not be out of order. If his pain is not welt controlled with the oral narcotic, oral analgesics, a Fentanyl patch 25 mcg every 3 days can also be ordered to deliver background pain control. Hopefully he will be able to be discharged Friday at which time he should followup with me in 10 days with a chest x-ray in my office.
[2019-05-15] MEDS: FENTANYL/BUPIVACAINE/NACL BAG 250 ML EPIDURAL SCH (16:44)
[2019-05-15] MEDS: SIMVASTATIN 20 MG TAB PO SCH (17:38)
--- NOTE | 2019-05-15 19:01 | IPNPDOC ---
Subjective Date Seen The patient was seen on 05/15/19. Subjective Chief Complaint/HPI He is sitting up in a chair; notes that he slept there last night, as the arms of the chair make it easier to reposition. He continues to get good pain relief from his epidural. States he is using his incentive spirometer. He has some concern re: pain control when epidural is stopped. Constitutional: Denies: Chills, Fever, Night Sweats Pulmonary: Reports: Cough; Denies: Dyspnea Cardiovascular: Reports: Chest Pain (especially with movement) Gastrointestinal: Denies: Nausea, Vomiting, Diarrhea, Constipation Genitourinary: Denies: Hematuria Psych: Reports: Mood Normal Objective Physical Examination General Exam: Positive: Alert, No Acute Distress Chest Exam: Positive: Normal air movement, Diminished (decreased breath sounds, but no rhonchior rales) Heart Exam: Positive: Rate Normal, Regular Rhythm, Murmurs (loud SALTY apex - MVP per patient?) Abdomen Exam: Positive: Normal bowel sounds, Soft; Negative: Tenderness Extremity Exam: Negative: Edema Assessment /Plan Problems (1) Multiple rib fractures Status: Acute Problem Text: 05/15 -- doing well, continue epidural and incentive spirometer 05/14 - Continue Epidural for pain control - will likely need this for several days until rib pain improves and can transition o oral pain meds Cont IS and encourage OOB Chest CT on admission:1. Small right hemopneumothorax. Dependent consolidation in the right lower lung is likely a combination of atelectasis and underlying pulmonary contusion. 2. Multiple fractures, including right segmental rib 5th through 11th fractures which predisposes to flail chest physiology. 3. Multichamber predominantly left heart enlargement. (2) Pneumothorax Status: Acute Response to Treatment: Improving Problem Text: 05/14 - CXR today: Small right residual pneumothorax suggested. Pleuroparenchymal changes and right rib fractures as above. Dr. Hernandez following (3) Fracture of transverse process of spine without spinal cord lesion (4) Urinary retention Status: Acute Problem Text: Noyola placed due to urinary retention after epidural Plan/VTE VTE Prophylaxis Ordered?: Yes (SCDs/TEDs - no anticoag due to hemopneumothorax) VS, I&O, 24H, Fishbone Vital Signs/I&O Vital Signs Date Time Temp Pulse Resp B/P (MAP) Pulse Ox O2 Delivery O2 Flow Rate FiO2 05/15/19 16:00 97.9 71 17 125/61 (82) 96 Room Air 05/14/19 08:00 1.0 I&O- Last 24 Hours up to 6 AM 05/15/19 06:00 Intake Total 1200 ml Output Total 1050 ml Balance 150 ml Laboratory Data 24H LABS Laboratory Tests 2 05/15/19 04:53: Nucleated Red Blood Cells % (auto) 0.0, Anion Gap 4L, Glomerular Filtration Rate > 60.0, Calcium Level 8.8 CBC/BMP Laboratory Tests 05/15/19 04:53 SHAYNE DAN DO May 15, 2019 19:01
[2019-05-15] MEDS: LUMIGAN 0.01% OS SCH (20:14)
[2019-05-15] MEDS: LIDOCAINE 5% (LIDODERM) PATCH TOP SCH (20:16)
[2019-05-16] VITALS (19 sets, daily range): BP systolic 115–139; BP diastolic 66–78; O2SAT 85–97
[2019-05-16] MEDS: KETOROLAC 30 MG/ML VIAL (J1885) IV SCH ×4 (03:46→20:54)
[2019-05-16 05:34] LABS: HEMATOCRIT 38.2 % (42.0-52.0); HEMOGLOBIN 12.3 g/dl (13.5-17.5); MEAN CORPUSCULAR HEMOGLOBIN 31.1 pg (27.0-33.0); MEAN CORPUSCULAR HGB CONC 32.2 g/dl (32.0-36.5); MEAN CORPUSCULAR VOLUME 96.5 fl (80.0-96.0); PLATELET COUNT, AUTOMATED 217 10^3/uL (150-450); RED BLOOD COUNT 3.96 10^6/uL (4.30-6.10)
[2019-05-16 05:56] LABS: BLOOD UREA NITROGEN 20 MG/DL (7-18); CALCIUM LEVEL 8.3 MG/DL (8.8-10.2); CARBON DIOXIDE LEVEL 26 MEQ/L (21-32); CHLORIDE LEVEL 107 MEQ/L (98-107); CREATININE FOR GFR 0.86 MG/DL (0.70-1.30); GLOMERULAR FILTRATION RATE > 60.0 (>49); GLUCOSE, FASTING 98 MG/DL (70-100); SODIUM LEVEL 139 MEQ/L (136-145)
[2019-05-16] MEDS: ALBUTEROL SULFATE 2.5 MG/0.5 ML INH NEB SOLN INH SCH ×4 (08:19→20:29)
[2019-05-16] MEDS: DOCUSATE SODIUM 100 MG CAP PO SCH ×2 (09:00→20:52)
[2019-05-16] MEDS: MOM 30ML SUSPENSION UDC PO SCH (09:00)
[2019-05-16] MEDS: BRIMONIDINE 0.1% OPHTH SOLN 5 ML OS SCH ×2 (09:10→20:51)
[2019-05-16] MEDS: SYSTANE OU SCH ×2 (09:10→20:52)
[2019-05-16] MEDS: COSOPT OCUMETER PLUS 10ML (DORZOLAMIDE/TIMOLOL) OS SCH ×2 (09:11→20:51)
[2019-05-16] MEDS: **NOTE PATIENT COMMENT** MISC XX SCH (09:15)
[2019-05-16] MEDS: PANTOPRAZOLE 40MG TAB (PROTONIX) PO SCH (09:15)
--- NOTE | 2019-05-16 09:50 | IPN ---
DATE: 05/16/2019 Mr. Madrigal is doing very well with his pain control. He now rates it around a 2. In fact this morning he changed position and twisted a little bit and did not feel the pain that he felt yesterday with changing position. His vital signs show a T-max of 98.0 with a heart rate that ranges between 68 and 79 and is sinus rhythm, respiratory rate of 16 to 20 without the use of accessory muscles who is 97% saturated on room air, and whose blood pressure is ranging between 116/68 to 126/77. His intake and output over the past 24 hours has been recorded as 900 in and 1350 out for a negativity of 450 mL. His weight is inaccurate today being recorded as 100.7 kilos compared to 76.5 kilos yesterday. On physical examination, his lungs show normal vesicular sounds without wheezes, rhonchi and rales. Percussion note is full to the diaphragm. Cardiac exam shows the 3-4 systolic murmur heard best at the left lower sternal border and apex consistent with his mitral regurgitation and prolapse. I cannot feel his PMI. S1 and S2 are normal. Abdomen is soft and nontender. Bowel sounds are positive. There is no hepatomegaly. No CVA tenderness. Extremities show no pretibial edema. No calf tenderness. No differential swelling of the upper extremities. Skin is warm, dry and perfused without cyanosis or mottling, including that of the nail beds and the knees. Neck is supple. There is no jugular venous distention, no subcutaneous emphysema. Trachea is midline. Mouth shows his mucous membranes to be pink and moist. Lips and commissures without lesions. There is no thrush. Eyes show his pupils to be equal and reactive. Extraocular motors intact. Sclera nonicteric. Neurologic shows II-XII intact along with gross motor and gross sensation intact. Gait is not tested. Psychiatric shows him to be awake and alert, oriented times three with appropriate mood and affect and conversational. His white count today is 10.0, essentially unchanged from yesterday with a hemoglobin and hematocrit of 12.3 and 38.2, again essentially unchanged from yesterday. Platelet count is 217. There is no differential. His platelet count is stable. Chemistries show normal electrolytes with a BUN and creatinine of 20 and 0.86 with a glucose of 98 and a calcium of 8.3. His chest x-ray today shows the lung fully expanded to the chest wall. His rib fractures can clearly be seen. There is still some minor blunting of the right costophrenic angle on the PA film and what looks to be some atelectasis posteriorly on the lateral film. He has a very small apical air space where I can just barely see a line between the lung and the rib. It is approximately 2 mm from the chest wall apically. IMPRESSION: 1. Multiple rib fractures 5, 6, 7, 8, 9, 10, 11 and perhaps 4 with a total of seven to eight without any flail segments. 2. Atelectasis right lower lobe. 3. Adequate pain control, well controlled with the epidural and Toradol. 4. Pericostal hematoma in and around the rib fractures. 5. Dyslipidemia. 6. Glaucoma. 7. Miniscule pneumothorax right side. PLAN AND DISCUSSION: As noted in the last two notes, his epidural should be weaned 1 mL per hour this Friday. During the wean oral narcotic medication should be offered. If his pain control is not adequate on Friday, when I would anticipate his discharge, I would add a fentanyl patch. I will see him back in the office in 10 days after discharge for followup with a chest x-ray. I will be leaving today.
--- NOTE | 2019-05-16 12:07 | REP ---
CHEST PA AND LATERAL: 05/16/2019. Comparison: 05/15/2019, 05/14/2019. Clinical history: Follow-up right rib fractures, right lung contusion. Findings: Epidural catheter is again seen over the upper chest. There remains a tiny apical pneumothorax similar or a trace smaller than the previous study. The multiple displaced rib fractures along the posterolateral and posterior right chest again seen consistent with flail chest. Subtle lucencies in the right chest medially along the mediastinum and inferiorly may reflect small pneumothorax in that location. Hazy density projecting over the right chest suggesting some atelectatic change or contusion. There is pleural effusion suggested on the lateral view on the right but not the left. The left lung remained clear. The heart, mediastinal and hilar contours unchanged. The aorta is tortuous, calcified at the arch but without aneurysm. Airway midline. Impression: 1. Tiny apical pneumothorax on the right with stable appearance. Some subtle lucencies along the right medial base may reflect pneumothorax adjacent to the mediastinum. 2. Multiple depressed and displaced rib fractures posterior and laterally on the right representing flail chest. Right effusion at the base. Left lung clear. I do not see significant interval change. Electronically Signed by Shade Alcantar MD 05/16/2019 05:07 P
--- NOTE | 2019-05-16 15:06 | IPNPDOC ---
Subjective Date Seen The patient was seen on 05/16/19. Subjective Chief Complaint/HPI rib fractures Events since last encounter He states that he is feeling better. Movements that were painful a couple days ago are less painful now. Constitutional: Denies: Chills, Fever Pulmonary: Reports: Cough; Denies: Dyspnea Cardiovascular: Reports: Chest Pain Gastrointestinal: Denies: Nausea, Vomiting, Abdominal Pain, Diarrhea Genitourinary: Reports: Retention Psych: Reports: Mood Normal Objective Physical Examination General Exam: Positive: Alert, No Acute Distress Chest Exam: Positive: Normal air movement, Diminished (decreased breath sounds, but no rhonchior rales) Heart Exam: Positive: Rate Normal, Regular Rhythm, Murmurs (loud SALTY apex - MVP per patient?) Abdomen Exam: Positive: Normal bowel sounds, Soft; Negative: Tenderness Extremity Exam: Negative: Edema Assessment /Plan Problems (1) Multiple rib fractures Status: Acute Problem Text: 05/16 -- continues to improve. Plan is to DC epidural on 05/18. 05/15 -- doing well, continue epidural and incentive spirometer 05/14 - Continue Epidural for pain control - will likely need this for several days until rib pain improves and can transition o oral pain meds Cont IS and encourage OOB Chest CT on admission:1. Small right hemopneumothorax. Dependent consolidation in the right lower lung is likely a combination of atelectasis and underlying pulmonary contusion. 2. Multiple fractures, including right segmental rib 5th through 11th fractures which predisposes to flail chest physiology. 3. Multichamber predominantly left heart enlargement. (2) Pneumothorax Status: Acute Response to Treatment: Improving Problem Text: 05/14 - CXR today: Small right residual pneumothorax suggested. Pleuroparenchymal changes and right rib fractures as above. Dr. Hernandez following (3) Fracture of transverse process of spine without spinal cord lesion (4) Urinary retention Status: Acute Problem Text: Noyola placed due to urinary retention after epidural Plan/VTE VTE Prophylaxis Ordered?: Yes (SCDs/TEDs - no anticoag due to hemopneumothorax) VS, I&O, 24H, Fishbone Vital Signs/I&O Vital Signs Date Time Temp Pulse Resp B/P (MAP) Pulse Ox O2 Delivery O2 Flow Rate FiO2 05/16/19 12:00 98.3 75 18 126/78 (94) 96 Room Air 05/14/19 08:00 1.0 I&O- Last 24 Hours up to 6 AM 05/16/19 06:00 Intake Total 900 ml Output Total 700 ml Balance 200 ml Laboratory Data 24H LABS Laboratory Tests 2 05/16/19 05:13: Nucleated Red Blood Cells % (auto) 0.0, Anion Gap 6L, Glomerular Filtration Rate > 60.0, Calcium Level 8.3L CBC/BMP Laboratory Tests 05/16/19 05:13 SHAYNE DAN DO May 16, 2019 15:06
[2019-05-16] MEDS: FENTANYL/BUPIVACAINE/NACL BAG 250 ML EPIDURAL SCH (16:27)
[2019-05-16] MEDS: SIMVASTATIN 20 MG TAB PO SCH (18:18)
[2019-05-16] MEDS: LUMIGAN 0.01% OS SCH (20:51)
[2019-05-16] MEDS: LIDOCAINE 5% (LIDODERM) PATCH TOP SCH (20:53)
[2019-05-17] VITALS (14 sets, daily range): BP systolic 108–138; BP diastolic 54–81; O2SAT 93–98
[2019-05-17] MEDS: KETOROLAC 30 MG/ML VIAL (J1885) IV SCH ×4 (03:43→20:34)
[2019-05-17 05:39] LABS: HEMATOCRIT 35.9 % (42.0-52.0); HEMOGLOBIN 11.9 g/dl (13.5-17.5); MEAN CORPUSCULAR HEMOGLOBIN 31.5 pg (27.0-33.0); MEAN CORPUSCULAR HGB CONC 33.1 g/dl (32.0-36.5); PLATELET COUNT, AUTOMATED 226 10^3/uL (150-450); RED BLOOD COUNT 3.78 10^6/uL (4.30-6.10)
[2019-05-17 05:58] LABS: BLOOD UREA NITROGEN 18 MG/DL (7-18); CALCIUM LEVEL 8.6 MG/DL (8.8-10.2); CARBON DIOXIDE LEVEL 27 MEQ/L (21-32); CHLORIDE LEVEL 105 MEQ/L (98-107); CREATININE FOR GFR 0.98 MG/DL (0.70-1.30); GLOMERULAR FILTRATION RATE > 60.0 (>49); GLUCOSE, FASTING 100 MG/DL (70-100); SODIUM LEVEL 136 MEQ/L (136-145)
[2019-05-17] MEDS: ALBUTEROL SULFATE 2.5 MG/0.5 ML INH NEB SOLN INH SCH ×4 (07:22→20:28)
--- NOTE | 2019-05-17 08:05 | REP ---
Chest x-ray: Two views. History: Rib fracture. Lung contusion. Comparison study May 16, 2019. Findings: An epidural catheter is again noted. EKG monitoring electrodes are seen. There are multiple right-sided rib fractures posterolaterally. A tiny sliver of apical pleural air is again noted, barely visible. No infiltrate is seen. On lateral radiograph there is blunting of the posterior pleural angle on the right indicating some degree of right pleural fluid unchanged. There is also some plate-like atelectasis visible on the lateral film presumably in the right lung base. Impression: Plate-like atelectasis and blunting of the pleural angle on the right. Tiny right apical pneumothorax. Multiple right-sided rib fractures again noted. Electronically Signed by Efraín Mariano MD 05/17/2019 11:44 A
--- NOTE | 2019-05-17 08:41 | IPNPDOC ---
Subjective Date Seen The patient was seen on 05/17/19. Subjective Chief Complaint/HPI fall, rib fractures, hemothorax Events since last encounter s/p CXR today. OOB with mild assist. Planned weaning of epidural in am. Patient notes pain is well controlled currently. denies other c/o today. Constitutional: Denies: Chills, Fever, Night Sweats Skin: Denies: Rash, Lesions, Breakdown Pulmonary: Denies: Dyspnea, Cough Cardiovascular: Denies: Chest Pain, Palpitations, Orthopnea, Paroxysmal Noc. Dyspnea, Lt Headedness Gastrointestinal: Denies: Nausea, Vomiting, Abdominal Pain, Diarrhea, Constipation Musculoskeletal: Reports: Back Pain, Other Symptoms (chest wall/thorax pain) Objective Physical Examination General Exam: Positive: Alert, No Acute Distress Chest Exam: Positive: Normal air movement, Diminished (decreased breath sounds, but no rhonchior rales) Heart Exam: Positive: Rate Normal, Regular Rhythm, Murmurs (blowing SALTY. hx of severe MVR) Abdomen Exam: Positive: Normal bowel sounds, Soft; Negative: Tenderness Extremity Exam: Negative: Edema Assessment /Plan Problems (1) Multiple rib fractures Status: Acute Problem Text: 05/17/2019: plan is unchanged 05/16 -- continues to improve. Plan is to DC epidural on 05/18. 05/15 -- doing well, continue epidural and incentive spirometer 05/14 - Continue Epidural for pain control - will likely need this for several days until rib pain improves and can transition o oral pain meds Cont IS and encourage OOB Chest CT on admission:1. Small right hemopneumothorax. Dependent consolidation in the right lower lung is likely a combination of atelectasis and underlying pulmonary contusion. 2. Multiple fractures, including right segmental rib 5th through 11th fractures which predisposes to flail chest physiology. 3. Multichamber predominantly left heart enlargement. (2) Pneumothorax Status: Acute Response to Treatment: Improving Problem Text: 05/14 - CXR today: Small right residual pneumothorax suggested. Pleuroparenchymal changes and right rib fractures as above. Dr. Hernandez following (3) Fracture of transverse process of spine without spinal cord lesion (4) Urinary retention Status: Acute Problem Text: Noyola placed due to urinary retention after epidural Plan/VTE VTE Prophylaxis Ordered?: Yes (SCDs/TEDs - no anticoag due to hemopneumothorax) VS, I&O, 24H, Fishbonsharmila Vital Signs/I&O Vital Signs Date Time Temp Pulse Resp B/P (MAP) Pulse Ox O2 Delivery O2 Flow Rate FiO2 05/17/19 04:00 97.2 76 16 138/81 (100) 95 Nasal Cannula 1.0 I&O- Last 24 Hours up to 6 AM 05/17/19 06:00 Intake Total 960 ml Output Total 1750 ml Balance -790 ml Laboratory Data 24H LABS Laboratory Tests 2 05/17/19 05:08: Nucleated Red Blood Cells % (auto) 0.0, Anion Gap 4L, Glomerular Filtration Rate > 60.0, Calcium Level 8.6L CBC/BMP Laboratory Tests 05/17/19 05:08 Vangie Hagan [employer] DEVELOPER May 17, 2019 08:41
[2019-05-17] MEDS: MOM 30ML SUSPENSION UDC PO SCH (09:00)
[2019-05-17] MEDS: DOCUSATE SODIUM 100 MG CAP PO SCH ×2 (09:00→20:34)
[2019-05-17] MEDS: PANTOPRAZOLE 40MG TAB (PROTONIX) PO SCH (09:08)
[2019-05-17] MEDS: SYSTANE OU SCH ×2 (09:09→20:35)
[2019-05-17] MEDS: BRIMONIDINE 0.1% OPHTH SOLN 5 ML OS SCH ×2 (09:09→20:34)
[2019-05-17] MEDS: COSOPT OCUMETER PLUS 10ML (DORZOLAMIDE/TIMOLOL) OS SCH ×2 (09:09→20:34)
[2019-05-17] MEDS: **NOTE PATIENT COMMENT** MISC XX SCH (09:10)
[2019-05-17] MEDS: SLF 3 ML SYR IV SCH ×2 (14:00→20:35)
[2019-05-17] MEDS ORDERED: SLF 3 ML SYR IV PRN (16:00)
[2019-05-17] MEDS: SIMVASTATIN 20 MG TAB PO SCH (17:08)
[2019-05-17] MEDS: FENTANYL/BUPIVACAINE/NACL BAG 250 ML EPIDURAL SCH (18:39)
[2019-05-17] MEDS: LIDOCAINE 5% (LIDODERM) PATCH TOP SCH (20:33)
[2019-05-17] MEDS: LUMIGAN 0.01% OS SCH (20:34)
[2019-05-18] VITALS (7 sets, daily range): BP systolic 112–131; BP diastolic 60–75; O2SAT 93–94
[2019-05-18] MEDS: KETOROLAC 30 MG/ML VIAL (J1885) IV SCH ×2 (03:42→10:27)
[2019-05-18] MEDS: SLF 3 ML SYR IV SCH ×3 (05:01→20:12)
[2019-05-18 05:06] LABS: HEMATOCRIT 35.6 % (42.0-52.0); HEMOGLOBIN 11.9 g/dl (13.5-17.5); MEAN CORPUSCULAR HEMOGLOBIN 31.4 pg (27.0-33.0); MEAN CORPUSCULAR HGB CONC 33.4 g/dl (32.0-36.5); MEAN CORPUSCULAR VOLUME 93.9 fl (80.0-96.0); PLATELET COUNT, AUTOMATED 248 10^3/uL (150-450); RED BLOOD COUNT 3.79 10^6/uL (4.30-6.10)
[2019-05-18 05:26] LABS: BLOOD UREA NITROGEN 16 MG/DL (7-18); CALCIUM LEVEL 8.7 MG/DL (8.8-10.2); CARBON DIOXIDE LEVEL 24 MEQ/L (21-32); CHLORIDE LEVEL 107 MEQ/L (98-107); CREATININE FOR GFR 0.86 MG/DL (0.70-1.30); GLOMERULAR FILTRATION RATE > 60.0 (>49); GLUCOSE, FASTING 102 MG/DL (70-100); SODIUM LEVEL 138 MEQ/L (136-145)
[2019-05-18] MEDS: ALBUTEROL SULFATE 2.5 MG/0.5 ML INH NEB SOLN INH SCH ×4 (07:40→20:21)
[2019-05-18] MEDS: MOM 30ML SUSPENSION UDC PO SCH (09:00)
[2019-05-18] MEDS: DOCUSATE SODIUM 100 MG CAP PO SCH ×2 (09:00→20:08)
[2019-05-18] MEDS: **NOTE PATIENT COMMENT** MISC XX SCH (09:00)
--- NOTE | 2019-05-18 10:01 | REP ---
Chest x-ray: Two views. History: Rib fracture with lung contusion. Comparison chest x-ray May 17, 2019. Findings: Monitoring electrodes are again seen overlying the chest. There is an epidural catheter visible. Multiple displaced right-sided rib fractures are again noted. There is elevation right hemidiaphragm and blunting of the lateral and posterior pleural angle. Plate-like atelectasis visible on the lateral radiograph in the lung bases. No infiltrate is visible. The aorta is somewhat tortuous. Impression: No new infiltrate. Small right effusion persists. Basilar plate-like atelectasis. Electronically Signed by Efraín Mariano MD 05/18/2019 05:14 P
[2019-05-18] MEDS ORDERED: PERCOCET 5MG/325MG TAB PO PRN (10:15)
--- NOTE | 2019-05-18 10:16 | IPNPDOC ---
Subjective Date Seen The patient was seen on 05/18/19. Subjective Chief Complaint/HPI Pain controlled. No new complaints Constitutional: Denies: Chills, Fever Pulmonary: Denies: Dyspnea, Cough Cardiovascular: Denies: Chest Pain, Palpitations Gastrointestinal: Denies: Nausea, Vomiting, Abdominal Pain, Diarrhea, Constipation Genitourinary: Reports: Retention (folwy in place) Objective Physical Examination General Exam: Positive: Alert, No Acute Distress Chest Exam: Positive: Diminished (decreased breath sounds, but no rhonchior rales); Negative: Rales, Rhonchi, Wheezing Heart Exam: Positive: Rate Normal, Regular Rhythm, Murmurs (blowing SALTY. hx of severe MVR) Abdomen Exam: Positive: Normal bowel sounds, Soft; Negative: Tenderness Extremity Exam: Negative: Edema Assessment /Plan Problems (1) Multiple rib fractures Status: Acute Problem Text: 05/18 - Plan to wean epidural by 1 ml/hour today and use Percocet 1 - 2 tabs prn pain with Toradol still on oder for breakthrough pain. I spokw with anesthesia and they are are of plan - I ordered wean 05/17/2019: plan is unchanged 05/16 -- continues to improve. Plan is to DC epidural on 05/18. 05/15 -- doing well, continue epidural and incentive spirometer 05/14 - Continue Epidural for pain control - will likely need this for several days until rib pain improves and can transition o oral pain meds Cont IS and encourage OOB Chest CT on admission:1. Small right hemopneumothorax. Dependent consolidation in the right lower lung is likely a combination of atelectasis and underlying pulmonary contusion. 2. Multiple fractures, including right segmental rib 5th through 11th fractures which predisposes to flail chest physiology. 3. Multichamber predominantly left heart enlargement. (2) Pneumothorax Status: Acute Response to Treatment: Improving Problem Text: 05/18 - has been getting CXR every day - still tiney pneumo per CXR yesterday. Pending for today. D/C daily CXRs 05/14 - CXR today: Small right residual pneumothorax suggested. Pleuroparenchymal changes and right rib fractures as above. Dr. Hernandez was following - now on vacation (3) Fracture of transverse process of spine without spinal cord lesion (4) Urinary retention Status: Acute Problem Text: Noyola placed due to urinary retention after epidural Plan/VTE VTE Prophylaxis Ordered?: Yes (SCDs/TEDs - no anticoag due to hemopneumothorax) VS, I&O, 24H, Fishbone Vital Signs/I&O Vital Signs Date Time Temp Pulse Resp B/P (MAP) Pulse Ox O2 Delivery O2 Flow Rate FiO2 05/18/19 08:00 98.3 72 16 120/69 (86) 100 Room Air 05/17/19 04:00 1.0 I&O- Last 24 Hours up to 6 AM 05/18/19 06:00 Intake Total 360 ml Output Total 1850 ml Balance -1490 ml Laboratory Data 24H LABS Laboratory Tests 2 05/18/19 04:50: Nucleated Red Blood Cells % (auto) 0.0, Anion Gap 7L, Glomerular Filtration Rate > 60.0, Calcium Level 8.7L CBC/BMP Laboratory Tests 05/18/19 04:50 VITA IRWIN PA-C May 18, 2019 10:16
[2019-05-18] MEDS: PANTOPRAZOLE 40MG TAB (PROTONIX) PO SCH (10:27)
[2019-05-18] MEDS: COSOPT OCUMETER PLUS 10ML (DORZOLAMIDE/TIMOLOL) OS SCH ×2 (10:28→20:08)
[2019-05-18] MEDS: BRIMONIDINE 0.1% OPHTH SOLN 5 ML OS SCH ×2 (10:29→20:07)
[2019-05-18] MEDS: SYSTANE OU SCH ×2 (10:29→20:08)
[2019-05-18] MEDS: FENTANYL/BUPIVACAINE/NACL BAG 250 ML EPIDURAL SCH (16:00)
[2019-05-18] MEDS: SIMVASTATIN 20 MG TAB PO SCH (17:48)
[2019-05-18] MEDS: LUMIGAN 0.01% OS SCH (20:07)
[2019-05-18] MEDS: LIDOCAINE 5% (LIDODERM) PATCH TOP SCH (20:08)
[2019-05-18] MEDS: NORCO, ANEXSIA 5/325MG TABLET (HYDROcodone/ACETAMINOPHEN) PO PRN (20:11)
[2019-05-19] MEDS: NORCO, ANEXSIA 5/325MG TABLET (HYDROcodone/ACETAMINOPHEN) PO PRN ×2 (00:26→07:10)
[2019-05-19] MEDS: ACETAMINOPHEN TAB 650MG DOSE (2X325MG) PO PRN ×2 (00:26→08:03)
[2019-05-19] MEDS: PERCOCET 5MG/325MG TAB PO PRN ×4 (03:38→21:32)
[2019-05-19] MEDS: SLF 3 ML SYR IV SCH ×3 (03:38→21:29)
[2019-05-19 04:00] VITALS: BP 125/82
[2019-05-19 08:00] VITALS: BP 137/74
[2019-05-19] MEDS: MOM 30ML SUSPENSION UDC PO SCH (08:03)
[2019-05-19] MEDS: DOCUSATE SODIUM 100 MG CAP PO SCH ×2 (08:03→21:29)
[2019-05-19] MEDS: PANTOPRAZOLE 40MG TAB (PROTONIX) PO SCH (08:03)
[2019-05-19] MEDS: COSOPT OCUMETER PLUS 10ML (DORZOLAMIDE/TIMOLOL) OS SCH ×2 (08:04→21:33)
[2019-05-19] MEDS: BRIMONIDINE 0.1% OPHTH SOLN 5 ML OS SCH ×2 (08:04→21:34)
[2019-05-19] MEDS: SYSTANE OU SCH ×2 (08:04→21:33)
[2019-05-19] MEDS: ALBUTEROL SULFATE 2.5 MG/0.5 ML INH NEB SOLN INH SCH ×4 (08:19→20:46)
--- NOTE | 2019-05-19 08:35 | IPNPDOC ---
Subjective Date Seen The patient was seen on 05/19/19. Subjective Chief Complaint/HPI Rates pain at about 7 - /10 - due for Percocet in about 15 minutes. Still able to take deep breaths without significant pain. No SOB garcia d/c'd - No further urinary retention Constitutional: Denies: Chills, Fever Pulmonary: Denies: Dyspnea, Cough Cardiovascular: Denies: Chest Pain, Palpitations Gastrointestinal: Denies: Nausea, Vomiting, Abdominal Pain, Diarrhea, Constipation Objective Physical Examination General Exam: Positive: Alert, No Acute Distress Chest Exam: Positive: Diminished (decreased breath sounds, but no rhonchior rales); Negative: Rales, Rhonchi, Wheezing Heart Exam: Positive: Rate Normal, Regular Rhythm, Murmurs (blowing SALTY. hx of severe MVR) Abdomen Exam: Positive: Normal bowel sounds, Soft; Negative: Tenderness Extremity Exam: Negative: Edema Assessment /Plan Problems (1) Multiple rib fractures Status: Acute Problem Text: 05/19 - Epidural weaned off yesterday. Getting Percocet 2 tabs every 4 hours prn with Toradol prn as well. See how he does this am after morning dose of Percocet. May need to consider Fentanyl patch to offer basil pain control if pain remains suboptimally controlled 05/18 - Plan to wean epidural by 1 ml/hour today and use Percocet 1 - 2 tabs prn pain with Toradol still on order for breakthrough pain. I spokw with anesthesia and they are are of plan - I ordered wean 05/17/2019: plan is unchanged 05/16 -- continues to improve. Plan is to DC epidural on 05/18. 05/15 -- doing well, continue epidural and incentive spirometer 05/14 - Continue Epidural for pain control - will likely need this for several days until rib pain improves and can transition o oral pain meds Cont IS and encourage OOB Chest CT on admission:1. Small right hemopneumothorax. Dependent consolidation in the right lower lung is likely a combination of atelectasis and underlying pulmonary contusion. 2. Multiple fractures, including right segmental rib 5th through 11th fractures which predisposes to flail chest physiology. 3. Multichamber predominantly left heart enlargement. (2) Pneumothorax Status: Resolved Response to Treatment: Improving Problem Text: 05/19 - resolved 05/18 - has been getting CXR every day - still tiny pneumo per CXR yesterday. Pending for today. D/C daily CXRs 05/14 - CXR today: Small right residual pneumothorax suggested. Pleuroparenchymal changes and right rib fractures as above. Dr. Hernandez was following - now on vacation (3) Fracture of transverse process of spine without spinal cord lesion (4) Urinary retention Status: Resolved Problem Text: 05/19 - Garcia d/c'd 05/18 Garcia placed due to urinary retention after epidural Plan/VTE VTE Prophylaxis Ordered?: Yes (SCDs/TEDs - no anticoag due to hemopneumothorax) VS, I&O, 24H, Fishbone Vital Signs/I&O Vital Signs Date Time Temp Pulse Resp B/P (MAP) Pulse Ox O2 Delivery O2 Flow Rate FiO2 05/19/19 07:10 18 Room Air 05/19/19 04:00 96.8 66 125/82 (96) 96 05/17/19 04:00 1.0 I&O- Last 24 Hours up to 6 AM 05/19/19 06:00 Intake Total 300 ml Output Total 600 ml Balance -300 ml VITA IRWIN PA-C May 19, 2019 08:35
[2019-05-19] MEDS: **NOTE PATIENT COMMENT** MISC XX SCH (09:00)
[2019-05-19 16:00] VITALS: BP 128/64
[2019-05-19] MEDS: SIMVASTATIN 20 MG TAB PO SCH (16:50)
[2019-05-19 20:00] VITALS: BP 118/74
[2019-05-19] MEDS: LUMIGAN 0.01% OS SCH (21:33)
[2019-05-19] MEDS: LIDOCAINE 5% (LIDODERM) PATCH TOP SCH (21:33)
[2019-05-20] MEDS: PERCOCET 5MG/325MG TAB PO PRN ×5 (01:45→20:03)
[2019-05-20 04:00] VITALS: BP 144/83
[2019-05-20 05:35] LABS: HEMOGLOBIN 13.1 g/dl (13.5-17.5); MEAN CORPUSCULAR HGB CONC 33.6 g/dl (32.0-36.5); MEAN CORPUSCULAR VOLUME 95.1 fl (80.0-96.0); PLATELET COUNT, AUTOMATED 324 10^3/uL (150-450); WHITE BLOOD COUNT 11.7 10^3/uL (4.0-10.0)
[2019-05-20 05:56] LABS: ALBUMIN 2.7 GM/DL (3.2-5.2); ALT/SGPT 15 U/L (12-78); BILIRUBIN,TOTAL 0.9 MG/DL (0.2-1.0); BLOOD UREA NITROGEN 15 MG/DL (7-18); CALCIUM LEVEL 9.1 MG/DL (8.8-10.2); CARBON DIOXIDE LEVEL 28 MEQ/L (21-32); CHLORIDE LEVEL 104 MEQ/L (98-107); CREATININE FOR GFR 0.99 MG/DL (0.70-1.30); GLOMERULAR FILTRATION RATE > 60.0 (>49); GLUCOSE, FASTING 93 MG/DL (70-100); POTASSIUM SERUM 4.5 MEQ/L (3.5-5.1); SODIUM LEVEL 138 MEQ/L (136-145); TOTAL PROTEIN 6.3 GM/DL (6.4-8.2)
[2019-05-20] MEDS: SLF 3 ML SYR IV SCH ×3 (05:57→19:59)
[2019-05-20 07:15] VITALS: BP 132/75
[2019-05-20] MEDS: ALBUTEROL SULFATE 2.5 MG/0.5 ML INH NEB SOLN INH SCH ×4 (07:44→19:57)
[2019-05-20] MEDS: MOM 30ML SUSPENSION UDC PO SCH (09:00)
[2019-05-20] MEDS: DOCUSATE SODIUM 100 MG CAP PO SCH ×2 (09:36→19:59)
[2019-05-20] MEDS: COSOPT OCUMETER PLUS 10ML (DORZOLAMIDE/TIMOLOL) OS SCH ×2 (09:36→20:00)
[2019-05-20] MEDS: PANTOPRAZOLE 40MG TAB (PROTONIX) PO SCH (09:36)
[2019-05-20] MEDS: SYSTANE OU SCH ×2 (09:37→20:00)
[2019-05-20] MEDS: BRIMONIDINE 0.1% OPHTH SOLN 5 ML OS SCH ×2 (09:37→20:01)
[2019-05-20] MEDS: **NOTE PATIENT COMMENT** MISC XX SCH (09:38)
--- NOTE | 2019-05-20 12:15 | IPNPDOC ---
Subjective Date Seen The patient was seen on 05/20/19. Subjective Chief Complaint/HPI Pain seems fairly well controlled with Percocet 2 tabs q 4 hours. Has not required Toradol Constitutional: Denies: Chills, Fever Pulmonary: Denies: Dyspnea, Cough Cardiovascular: Denies: Chest Pain, Palpitations Gastrointestinal: Denies: Nausea, Vomiting, Abdominal Pain, Diarrhea, Constipation Objective Physical Examination General Exam: Positive: Alert, No Acute Distress Chest Exam: Positive: Diminished (decreased breath sounds, but no rhonchior rales); Negative: Rales, Rhonchi, Wheezing Heart Exam: Positive: Rate Normal, Regular Rhythm, Murmurs (blowing SALTY. hx of severe MVR) Abdomen Exam: Positive: Normal bowel sounds, Soft; Negative: Tenderness Extremity Exam: Negative: Edema Assessment /Plan Problems (1) Multiple rib fractures Status: Acute Problem Text: 05/20 - Patient would like to walk more today and try to shower. Cont current po pain meds and plan for d/c i n am 05/19 - Epidural weaned off yesterday. Getting Percocet 2 tabs every 4 hours prn with Toradol prn as well. See how he does this am after morning dose of Percocet. May need to consider Fentanyl patch to offer basil pain control if pain remains suboptimally controlled 05/18 - Plan to wean epidural by 1 ml/hour today and use Percocet 1 - 2 tabs prn pain with Toradol still on order for breakthrough pain. I spokw with anesthesia and they are are of plan - I ordered wean 05/17/2019: plan is unchanged 05/16 -- continues to improve. Plan is to DC epidural on 05/18. 05/15 -- doing well, continue epidural and incentive spirometer 05/14 - Continue Epidural for pain control - will likely need this for several days until rib pain improves and can transition o oral pain meds Cont IS and encourage OOB Chest CT on admission:1. Small right hemopneumothorax. Dependent consolidation in the right lower lung is likely a combination of atelectasis and underlying pulmonary contusion. 2. Multiple fractures, including right segmental rib 5th through 11th fractures which predisposes to flail chest physiology. 3. Multichamber predominantly left heart enlargement. (2) Pneumothorax Status: Resolved Response to Treatment: Improving Problem Text: 05/19 - resolved 05/18 - has been getting CXR every day - still tiny pneumo per CXR yesterday. Pending for today. D/C daily CXRs 05/14 - CXR today: Small right residual pneumothorax suggested. Pleuroparenchymal changes and right rib fractures as above. Dr. Hernandez was following - now on vacation (3) Fracture of transverse process of spine without spinal cord lesion (4) Urinary retention Status: Resolved Problem Text: 05/19 - Noyola d/c'd 05/18 Noyola placed due to urinary retention after epidural Plan/VTE VTE Prophylaxis Ordered?: Yes (SCDs/TEDs - no anticoag due to hemopneumothorax) VS, I&O, 24H, Fishbone Vital Signs/I&O Vital Signs Date Time Temp Pulse Resp B/P (MAP) Pulse Ox O2 Delivery O2 Flow Rate FiO2 05/20/19 10:44 20 05/20/19 07:15 97.3 76 132/75 (94) 93 Room Air 05/17/19 04:00 1.0 I&O- Last 24 Hours up to 6 AM 05/20/19 06:00 Intake Total 1020 ml Output Total 1250 ml Balance -230 ml Laboratory Data 24H LABS Laboratory Tests 2 05/20/19 05:12: Nucleated Red Blood Cells % (auto) 0.0, Anion Gap 6L, Glomerular Filtration Rate > 60.0, Calcium Level 9.1, Total Bilirubin 0.9, Aspartate Amino Transf (AST/SGOT) 14, Alanine Aminotransferase (ALT/SGPT) 15, Alkaline Phosphatase 77, Total Protein 6.3L, Albumin 2.7L, Albumin/Globulin Ratio 0.75L CBC/BMP Laboratory Tests 05/20/19 05:12 VITA IRWIN PA-C May 20, 2019 12:15
[2019-05-20 16:00] VITALS: BP 115/63
[2019-05-20] MEDS: SIMVASTATIN 20 MG TAB PO SCH (18:35)
[2019-05-20] MEDS: LIDOCAINE 5% (LIDODERM) PATCH TOP SCH (19:59)
[2019-05-20 20:00] VITALS: BP 122/66
[2019-05-20] MEDS: LUMIGAN 0.01% OS SCH (20:00)
[2019-05-21] MEDS: PERCOCET 5MG/325MG TAB PO PRN ×3 (01:07→09:28)
[2019-05-21 04:00] VITALS: BP 136/75
[2019-05-21] MEDS: SLF 3 ML SYR IV SCH (04:57)
[2019-05-21 07:10] VITALS: BP 133/87
[2019-05-21] MEDS: ALBUTEROL SULFATE 2.5 MG/0.5 ML INH NEB SOLN INH SCH (08:00)
[2019-05-21] MEDS: DOCUSATE SODIUM 100 MG CAP PO SCH (09:00)
[2019-05-21] MEDS: MOM 30ML SUSPENSION UDC PO SCH (09:00)
[2019-05-21] MEDS: COSOPT OCUMETER PLUS 10ML (DORZOLAMIDE/TIMOLOL) OS SCH (09:23)
[2019-05-21] MEDS: PANTOPRAZOLE 40MG TAB (PROTONIX) PO SCH (09:23)
[2019-05-21] MEDS: SYSTANE OU SCH (09:24)
[2019-05-21] MEDS: BRIMONIDINE 0.1% OPHTH SOLN 5 ML OS SCH (09:24)
[2019-05-21] MEDS: **NOTE PATIENT COMMENT** MISC XX SCH (09:24)
[2019-05-21] MEDS ORDERED: ALB2.5NEB INH (10:36)
[2019-05-21] MEDS ORDERED: MOM30SS2 PO (10:36)
[2019-05-21] MEDS ORDERED: DOCU100C16 PO (10:36)
[2019-05-21] MEDS ORDERED: PERCOCET PO (10:36)
== END 2019-05-21 11:50 | disposition home or self-care (01) | DRG 183 ==
LOC: M ED 17:41 → M ED INP 19:54 → M MS5PR 22:05 → M PCU 05-13 13:03 → M MS5PR 05-21 07:00
PROVIDERS: ADMIT Internal Medicine; ATTEND Family Medicine
DX: S22.41XA Multiple fractures of ribs, right side, initial encounter for closed fracture (principal); S27.2XXA Traumatic hemopneumothorax, initial encounter; S27.321A Contusion of lung, unilateral, initial encounter; J98.11 Atelectasis; E78.5 Hyperlipidemia, unspecified; I34.0 Nonrheumatic mitral (valve) insufficiency; H40.9 Unspecified glaucoma; Z87.891 Personal history of nicotine dependence; D72.829 Elevated white blood cell count, unspecified; Z79.82 Long term (current) use of aspirin; Z79.899 Other long term (current) drug therapy; R33.9 Retention of urine, unspecified; W00.0XXA Fall on same level due to ice and snow, initial encounter; Y92.009 Unspecified place in unspecified non-institutional (private) residence as the place of occurrence of the external cause

== ENCOUNTER → 2019-05-28 | Outpatient (CLI) | payer OTHER, MEDICARE ==
[~2019-05-28] MED LIST changes: +ADVI100T PO; +ALB2.5NEB INH; +BRIM1OPD OS; +DOCU100C16 PO; +IBUP200T45 PO; +KRIL1CAP6 PO; +LIDO1PAD TOP; +MOM30SS2 PO; +OXYC1TAB23 PO; +PERCOCET PO; +SIMV20TA22 PO; +SYST1SOL4 OU
--- NOTE | 2019-05-28 14:40 | REP ---
Two-view chest: 05/28/2019. Indication: Chest trauma. Comparison: 05/18/2019. Findings: The right-sided pleural effusion has increased. Multiple right-sided rib fractures are redemonstrated. The left lung is clear. There is no evidence of pneumothorax. Impression: Mildly increased right pleural effusion. Multiple right-sided rib fractures. Stable. Left lung is clear. Electronically Signed by Giovani Cam DO 05/28/2019 02:31 P
== END ==
LOC: M CLY 14:16
PROVIDERS: ATTEND Family Medicine
DX: S22.41XD Multiple fractures of ribs, right side, subsequent encounter for fracture with routine healing (principal); J91.8 Pleural effusion in other conditions classified elsewhere; X58.XXXA Exposure to other specified factors, initial encounter

== ENCOUNTER → 2019-06-10 | Outpatient (CLI) | payer OTHER, MEDICARE ==
[~2019-06-10] MED LIST changes: +COLA100C5 PO
--- NOTE | 2019-06-10 21:13 | REPPI ---
Clinical: Right rib fractures. Technique: PA and lateral. Comparison: 05/28/2019. Findings: Right lateral rib fractures are again identified and unchanged. Moderate right pleural effusion and right basilar opacities suggesting atelectasis remain unchanged. No obvious pneumothorax. The left hemithorax is relatively clear. The mediastinum and cardiac silhouette are stable. Impression: Stable right rib fractures Stable moderate right pleural effusion and associated passive atelectasis Electronically Signed by Alpesh Roche MD 06/10/2019 09:04 P
== END ==
LOC: M PLAIMG 08:45
PROVIDERS: ATTEND Thoracic Surgery (Cardiothoracic Vascular Surgery)
DX: S22.41XA Multiple fractures of ribs, right side, initial encounter for closed fracture (principal); X58.XXXA Exposure to other specified factors, initial encounter; Y92.89 Other specified places as the place of occurrence of the external cause; Y93.9 Activity, unspecified; Y99.9 Unspecified external cause status

== ENCOUNTER → 2019-06-11 | Outpatient (CLI) | payer MEDICARE, OTHER ==
[2019-06-11 14:14] LABS: TOTAL PROTEIN 7.5 GM/DL (6.4-8.2)
--- NOTE | 2019-06-11 14:56 | REP ---
Chest x-ray: Two views. History: Post right thoracentesis. Comparison study May 28, 2019. Findings: There are again noted multiple displaced healing rib fractures on the right. There has been a decrease in the amount of right pleural fluid. There is some plate-like atelectasis in the right lung base. There is no evidence of pneumothorax. The left lung is unremarkable and unchanged. Impression: Improved right pleural effusion post thoracentesis. Mild right base plate-like atelectasis. No complications seen. Electronically Signed by Efraín Mariano MD 06/11/2019 03:57 P
[2019-06-11 15:13] LABS: PH BODY FLUID 7.491 UNITS (NOT ESTABLISHED); SOURCE, BODY FLUID pH PLEURAL
[2019-06-11 15:23] LABS: AMYLASE, BODY FLUID 29 U/L (NOT ESTABLISHED); LDH, BODY FLUID 172 U/L (NOT ESTABLISHED); SOURCE, BODY FLUID AMYLASE PLEURAL; SOURCE, BODY FLUID GLUCOSE PLEURAL; SOURCE, BODY FLUID LDH PLEURAL; SOURCE, BODY FLUID TOT PROTEIN PLEURAL; TOTAL PROTEIN, BODY FLUID 4.7 G/DL (NOT ESTABLISHED)
[2019-06-11 15:31] LABS: APPEARANCE, BODY FLUID CLOUDY (CLEAR); PLEURAL FL COLOR AMBER (COLORLESS); SOURCE, BODY FLUID PLEURAL
[2019-06-11 16:33] VITALS: BP 122/62
--- NOTE | 2019-06-11 18:52 | REP ---
Ultrasound-guided thoracentesis The procedure was performed by ALEX Howard, under the direct supervision of Dr. Mariano. The risks and benefits of the procedure were explained to the patient and informed consent was obtained both verbally and written. Directly prior to the start of the procedure, a formal timeout was completed in the exam room. Pleural fluid on the right lung zone was localized using ultrasound guidance. The skin was prepped and draped in a sterile fashion. 6 ml of 1% lidocaine 10 mg/ml was used as a local anesthetic. Using ultrasound guidance, an 8-Portuguese multi side-hole catheter was inserted and advanced into the fluid. 905 ml of red colored fluid was withdrawn and sent to the lab for analysis. The patient tolerated the procedure well and there were no immediate complications. After the appropriate amount of monitored convalescence, the patient was discharged from the department. Reviewed by ALEX Rivers 06/11/2019 05:05 P Electronically Signed by Efraín Mariano MD 06/11/2019 06:44 P
== END ==
LOC: M IRPRO 13:08
PROVIDERS: ATTEND Thoracic Surgery (Cardiothoracic Vascular Surgery)
DX: J94.2 Hemothorax (principal); J98.11 Atelectasis

== ENCOUNTER → 2019-06-30 | Outpatient (CLI) | payer OTHER ==
--- NOTE | 2019-07-01 01:11 | REP ---
Clinical: Rib fractures. Technique: PA and lateral. Comparison: 06/10/2019. Findings: Multiple right rib fractures are again identified. Chronic blunting versus small pleural effusion at the right lung base cannot be differentiated. Trace left basilar fibroatelectatic changes are noted. No discrete focal consolidation. No pneumothorax. Mediastinum and cardiac silhouette are stable. Impression: Stable appearance to the right rib fractures. Acute and/or chronic changes at the bilateral lung bases and right pleural surface. Electronically Signed by Alpesh Roche MD 07/01/2019 01:04 A
== END ==
LOC: M CLY 13:27
PROVIDERS: ATTEND Family Medicine
DX: S22.41XD Multiple fractures of ribs, right side, subsequent encounter for fracture with routine healing (principal); X58.XXXD Exposure to other specified factors, subsequent encounter

== ENCOUNTER → 2019-08-13 | Outpatient (REF) | payer OTHER ==
[2019-08-16 12:18] LABS: ALBUMIN 4.3 GM/DL (3.2-5.2); ALT/SGPT 48 U/L (12-78); BILIRUBIN,TOTAL 0.9 MG/DL (0.2-1.0); BLOOD UREA NITROGEN 12 MG/DL (7-18); CALCIUM LEVEL 9.7 MG/DL (8.8-10.2); CARBON DIOXIDE LEVEL 24 MEQ/L (21-32); CHLORIDE LEVEL 107 MEQ/L (98-107); CHOLESTEROL LEVEL 200 MG/DL (<200); CHOLESTEROL RISK RATIO 4.081 (<5); CREATININE FOR GFR 0.92 MG/DL (0.70-1.30); GLOMERULAR FILTRATION RATE > 60.0 (>49); GLUCOSE, FASTING 99 MG/DL (70-100); HDL CHOLESTEROL 49 MG/DL (>40); LDL CHOLESTEROL 117 MG/DL (<100); NON-HDL-C 151 MG/DL; NT-PRO BNP 769 PG/ML (<125); POTASSIUM SERUM 4.6 MEQ/L (3.5-5.1); SODIUM LEVEL 139 MEQ/L (136-145); TOTAL PROTEIN 7.1 GM/DL (6.4-8.2); TRIGLYCERIDES LEVEL 169 MG/DL (<150)
== END ==
LOC: M SFHCCLAY 08:08
PROVIDERS: ATTEND Family Medicine
DX: Z12.5 Encounter for screening for malignant neoplasm of prostate (principal)
CPT/HCPCS: 80053; 80061; 83880; 84443; G0103

== ENCOUNTER → 2019-10-04 | Outpatient (CLI) | payer OTHER, MEDICARE ==
--- NOTE | 2019-10-04 23:04 | REP ---
REASON: History of multiple fractures. LATEST PRIOR: 06/30/2019 Multiple right-sided rib fractures, most of which appear to have callus formation, consistent with healing. No new fractures are noted. The opacities seen on the right have resolved. No new abnormal lung field opacities. No change in the cardiomediastinal silhouette. IMPRESSION: Healing rib fractures. Electronically Signed by Christiano Boland DO 10/05/2019 07:56 A
== END ==
LOC: M CLY 13:40
PROVIDERS: ATTEND Family Medicine
DX: S22.41XD Multiple fractures of ribs, right side, subsequent encounter for fracture with routine healing (principal); X58.XXXD Exposure to other specified factors, subsequent encounter

== ENCOUNTER → 2019-11-10 | Outpatient (CLI) | payer OTHER ==
--- NOTE | 2019-11-11 15:48 | DEXA ---
AP SPINE L1 - L4 1.335 1.1 1.3 LT FEMUR TOTAL 1.148 1.1 1.0 LT NECK 1.040 0.0 1.0 RT FEMUR TOTAL 1.095 0.7 0.7 RT NECK 1.029 -0.1 0.9 TOTAL BODY TOTAL OTHER COMMENTS: Normal bone densitometry of the spine and hips. FOLLOW-UP: Recommendation for the next bone density exam: 5 years. LAMAR
== END ==
LOC: M WHC 07:52
PROVIDERS: ATTEND Family Medicine
DX: S22.41XD Multiple fractures of ribs, right side, subsequent encounter for fracture with routine healing (principal); X58.XXXD Exposure to other specified factors, subsequent encounter

== ENCOUNTER → 2020-02-28 | Outpatient (CLI) | payer OTHER, MEDICARE ==
--- NOTE | 2020-03-08 06:39 | REP ---
CHEST X-RAY CLINICAL: Hemothorax. TECHNIQUE: PA and lateral. COMPARISON: 10/04/2019. FINDINGS: The mediastinum and cardiac silhouette are stable and within normal limits. The lung de la rosa demonstrate diffuse chronic interstitial changes without acute consolidation. No evidence for effusion or pneumothorax. Multiple healed right rib fractures are again identified. IMPRESSION: Chronic stable changes. No acute cardiopulmonary process appreciated. No evidence for pleural effusion. MTDD
== END ==
LOC: M CLY 11:43
PROVIDERS: ATTEND Family Medicine
DX: S22.41XD Multiple fractures of ribs, right side, subsequent encounter for fracture with routine healing (principal); Z83.6 Family history of other diseases of the respiratory system; X58.XXXD Exposure to other specified factors, subsequent encounter

== ENCOUNTER → 2020-11-08 | Outpatient (REF) | payer MEDICARE, OTHER | LOC: M SFHCCLAY 08:36 | PROVIDERS: ATTEND Family Medicine | DX: E78.00 Pure hypercholesterolemia, unspecified (principal); R73.01 Impaired fasting glucose; I34.0 Nonrheumatic mitral (valve) insufficiency ==

== ENCOUNTER → 2022-12-11 | Outpatient (REF) | payer MEDICARE, OTHER ==
[~2022-12-11] MED LIST changes: -COSO1SOL3 OS; +DORZ10DR10 OS; -IBUP200T45 PO; +IBUP200T46 PO
[2022-12-11 19:18] LABS: FREE T4 1.37 NG/DL (0.89-1.76); THYROID STIMULATING HORMONE 3.198 uIU/ML (0.55-4.78)
== END ==
LOC: M SFHCCLAY 11:47
PROVIDERS: ATTEND Family Medicine
DX: I48.91 Unspecified atrial fibrillation (principal)